=== PATIENT | male | born 1955 | race Caucasian/White ===

== ENCOUNTER 2022-06-09 16:06 | Emergency (ER) | payer MEDICARE, SELFPAY ==
[2022-06-09 16:18] VITALS: BP 117/77; PULSE 96; RESP 20; TEMP 36.7; O2SAT 96
[2022-06-09 16:45] VITALS: RESP 24
--- NOTE | 2022-06-09 16:57 | ED.GENADUL_ITS ---
Discharge Plan Disposition Patient Disposition: HOME Condition: Stable Discharge Details Clinical Impression: COPD exacerbation Primary Care Provider: Unknown,Unknown ED Provider: Paulino Nugent Home Meds and New Rx's Prescriptions: New prednisone 20 mg tablet 60 mg PO DAILY 4 Days Qty: 12 0RF ipratropium-albuterol 0.5 mg-3 mg(2.5 mg base)/3 mL solution for nebulization 3 ml inhalation Q6H PRNQty: 90 0RF Continued albuterol sulfate [Proventil HFA] 1 PUFF HFA aerosol inhaler 200 puff Inhalation QID PRN (Reason: Shortness Of Breath) Qty: 1 0RF simvastatin 20 MG tablet 20 mg PO DAILY budesonide-formoterol [Symbicort] 10.2 GM HFA aerosol inhaler 2 puff Inhalation BID Daliresp 500 MCG tablet 500 mcg PO DAILY naproxen 500 MG tablet 500 mg PO BID Qty: 10 0RF tramadol 50 MG tablet 50 mg PO Q6H PRNQty: 10 0RF losartan 25 mg tablet 25 mg PO DAILY Label Comments: TAKE 1 TABLET BY MOUTH ONCE DAILY FOR BLOOD PRESSURE Discharge Instructions Instructions: COPD (Chronic Obstructive Pulmonary Disease) (ED) Additional Instructions: follow up with your primary care provider within 1 week if you feel more ill, have severe worsening difficulty breathing or chest pain return to the emergency department Medical Decision Making 66 yo male who has a hx of copd and quit smoking 2 years ago, htn, hld, comes in with complaint of feeling short of breath. He takes ipratropium/abluterol nebulizer every morning and he ran out of it, his pcp called him in an inhaler instead of the nebulizer and he has been feeling short of breath most of the day so came here. He arrives stable speaking clearly. HE denies chest pain, fevers, cough. He has no leg swelling or calf tenderness. He does have diffuze wheezing in all lung [place] bilaterally. No jvd. Given his history and exam suspect copd exacerbation will treat with duoneb and prednisone and reassess. pt states he feels significantly better requesting d/c, only has apical wheezing bilaterally now otherwise clear lungs. Given rapid improvement with neb do not feel further testing or treatment indicated. given no fever or worsening cough do not feel abx indicated. Will place on short course of prednisone and advised to f/u with pcp, return precautions given Differential Diagnosis Differential Diagnosis: copd, reactive airway disease HPI General Mode of arrival: ambulatory . Date/Time Provider Initiated Documentation: 06/09/22 16:07 . Limitations to Documentation: no limitations . Information obtained by: patient . History of Present Illness 66 year old M presents to the emergency department with the chief complaint of shortness of breath, described as moderate, Patient started experiencing this hour(s) (7) and it has been constant. No relieving factors improve symptom(s), No exacerbating factors reported . Patient notes denies chest pain, cough and fever/chills. Patient did receive the following treatments prior to arrival, none Related Data Home Medications Medication Instructions Recorded Confirmed albuterol sulfate 90 mcg/actuation 200 puff inhalation QID PRN 12/02/12 10/23/17 aerosol inhaler (Proventil HFA) Shortness Of Breath #1 inh budesonide-formoterol HFA 80 2 puff inhalation BID 10/23/17 06/09/22 mcg-4.5 mcg/actuation aerosol inhaler (Symbicort) naproxen 500 mg tablet 500 mg PO BID #10 tabs 10/23/17 06/09/22 roflumilast 500 mcg tablet 500 mcg PO DAILY 10/23/17 06/09/22 (Daliresp) simvastatin 20 mg tablet 20 mg PO DAILY 10/23/17 06/09/22 tramadol 50 mg tablet 50 mg PO Q6H PRN #10 tabs 10/23/17 ipratropium 0.5 mg-albuterol 3 mg 3 ml inhalation Q6H PRN #90 mL 06/09/22 (2.5 mg base)/3 mL nebulization soln losartan 25 mg tablet 25 mg PO DAILY 06/09/22 06/09/22 prednisone 20 mg tablet 60 mg PO DAILY 4 days #12 tabs 06/09/22 Previous Rx's Medication Instructions Recorded albuterol sulfate 90 mcg/actuation 200 puff inhalation QID PRN 12/02/12 aerosol inhaler (Proventil HFA) Shortness Of Breath #1 inh naproxen 500 mg tablet 500 mg PO BID #10 tabs 10/23/17 tramadol 50 mg tablet 50 mg PO Q6H PRN #10 tabs 10/23/17 ipratropium 0.5 mg-albuterol 3 mg 3 ml inhalation Q6H PRN #90 mL 06/09/22 (2.5 mg base)/3 mL nebulization soln prednisone 20 mg tablet 60 mg PO DAILY 4 days #12 tabs 06/09/22 Allergies Allergy/AdvReac Type Severity Reaction Status Date / Time No Known Allergies Allergy Unverified 06/09/22 16:22 General Stated Complaint: SOB RANDY: 4 Review of Systems All systems reviewed & are unremarkable except as noted in HPI and below Constitutional Constitutional: Denies chills, Denies fever(s) and Denies weakness Cardiovascular Cardiovascular: Denies chest pain Respiratory Respiratory: Denies cough Gastrointestinal Gastrointestinal: Denies abdominal pain, Denies nausea and Denies vomiting Musculoskeletal Musculoskeletal: Denies joint swelling Neurologic Neurologic: Denies weakness PFSH All Active Problems (Updated 06/09/22 @ 17:40 by Paulino Nugent MD) COPD exacerbation (Acute) Social History Smoking/Tobacco Use Status: Current every day Smoking risk assessment performed?: Yes Drug use: Never Substance use type: does not use Do you feel safe in your relationship?: Yes Exam Const General: no acute distress Orientation: alert HENMT Head: normal to inspection Ears: external ears normal General nose exam: external nose normal Mouth: moist mucous membranes Eyes General: appearance normal, both eyes and all related structures Neck Neck: normal visual inspection Resp Effort & Inspection: audible wheezes Cardio Rate: regular rate Skin General skin exam: no rashes or lesions noted Neuro General: patient alert and patient oriented x3 Extrem General: normal to inspection Psych Mental Status: mental status grossly normal Course Vital Signs Vital signs: Vital Signs Temperature 36.7 C 06/09/22 16:18 Pulse 96 H 06/09/22 16:18 Respiratory Rate 20 06/09/22 16:18 Blood Pressure 117/77 06/09/22 16:18 Pulse Oximetry 96 06/09/22 16:18 Temperature 36.7 C 06/09/22 16:18 Temperature Source Temporal Artery Scan 06/09/22 16:18 Pulse 96 H 06/09/22 16:18 Respiratory Rate 24 06/09/22 16:45 Respiratory Effort 06/09/22 16:45 Respiratory Depth Shallow 06/09/22 16:45 Respiratory Pattern Normal 06/09/22 16:45 Blood Pressure 117/77 06/09/22 16:18 Blood Pressure Position Sitting 06/09/22 16:18 Pulse Oximetry 96 06/09/22 16:18 Oxygen Delivery Method Room Air 06/09/22 16:18 Oxygen Flow Rate 0 06/09/22 16:18 Pain Level 0 06/09/22 16:18
[2022-06-09] MEDS: predniSONE 20 MG TAB 60 MG PO (17:10)
[2022-06-09 17:11] VITALS: PULSE 107; RESP 20; O2SAT 95
[2022-06-09] MEDS: Albuterol/Ipratropium 3 ML UPD VIAL UPD (17:11)
[2022-06-09 17:34] VITALS: PULSE 109; RESP 20; RESP 8; O2SAT 96
[2022-06-09 17:40] VITALS: BP 108/78; PULSE 107; TEMP 36.9; O2SAT 95
[2022-06-09 17:53] VITALS: BP 108/78; PULSE 107; TEMP 36.9; O2SAT 95
== END 2022-06-09 18:02 | disposition home or self-care (01) ==
PROVIDERS: Emergency Provider Emergency Medicine
DX: J44.1 Chronic obstructive pulmonary disease with (acute) exacerbation (principal); I10 Essential (primary) hypertension; F17.200 Nicotine dependence, unspecified, uncomplicated; Z79.51 Long term (current) use of inhaled steroids; Z79.52 Long term (current) use of systemic steroids
CPT/HCPCS: 94640; 99284; J7512; J7620

== ENCOUNTER 2023-06-02 06:39 | Observation (INO) | payer MEDICARE, SELFPAY ==
[2023-06-02] VITALS (78 sets, daily range): BP systolic 102–159; BP diastolic 66–110; PULSE 0–88; RESP 0–25; TEMP 36.1–36.4; O2SAT 95–98
--- NOTE | 2023-06-02 | DI.US_ITS ---
Exam(s) US EXTREMITY VENOUS BI EXAM: US EXTREMITY VENOUS BI CLINICAL HISTORY: elevated d-dimer. TECHNIQUE: Bilateral lower extremity venous ultrasound performed using grayscale, color-flow, and sp ectral Doppler analysis. COMPARISON: No exams were available for comparison FINDINGS: The right common femoral, femoral and popliteal veins demonstrate normal compressibility, augmentatio n, and color Doppler. The posterior tibial veins are patent. The saphenofemoral junction is unremark able. There is no evidence of a Berman's cyst. The soft tissues are unremarkable. The left common femoral, femoral and popliteal veins demonstrate normal compressibility, augmentation , and color Doppler. The posterior tibial veins are patent. The saphenofemoral junction is unremarka ble. There is no evidence of a Berman's cyst. The soft tissues are unremarkable. IMPRESSION: 1. No evidence of a right lower extremity DVT. 2. No evidence of a left lower extremity DVT. DATA REPOSITORY:
--- NOTE | 2023-06-02 06:30 | RT.EKG_ITS ---
APPROVED REPORT Exam: Resting ECG Reason for Exam: chest pain Patient Location: E HR:79 bpm ECG Measurements Heart Rate 79 AXIS IA 181 P 69 QRSd 86 QRS 53 QT 359 T 61 QTc 412 Conclusion Sinus rhythm...normal P axis, V-rate 60- 99 Probable left atrial enlargement...P >50mS, <-0.10mV V1
--- NOTE | 2023-06-02 06:57 | ED.GENADUL_ITS ---
Discharge Plan Discharge Details Chief Complaint: Chest Pain Primary Care Provider: Unknown,Unknown ED Provider: Timoteo Feliciano Home Meds and New Rx's Prescriptions: No Action albuterol sulfate [Proventil HFA] 1 PUFF HFA aerosol inhaler 200 puff Inhalation QID PRN (Reason: Shortness Of Breath) Qty: 1 0RF simvastatin 20 MG tablet 20 mg PO DAILY budesonide-formoterol [Symbicort] 10.2 GM HFA aerosol inhaler 2 puff Inhalation BID roflumilast [Daliresp] 500 MCG tablet 500 mcg PO DAILY naproxen 500 MG tablet 500 mg PO BID Qty: 10 0RF tramadol 50 MG tablet 50 mg PO Q6H PRNQty: 10 0RF losartan 25 mg tablet 25 mg PO DAILY Patient Comments: TAKE 1 TABLET BY MOUTH ONCE DAILY FOR BLOOD PRESSURE ipratropium-albuterol 0.5 mg-3 mg(2.5 mg base)/3 mL solution for nebulization 3 ml inhalation Q6H PRNQty: 90 0RF HPI General Date/Time Provider Initiated Documentation: 06/02/23 06:57 . HPI Narrative: Patient presents emergency department complaining of chest pain especially when he breathes. States that he got short of breath last night took Tums with improvement and then the pain recurred. Denies any fever denies any chills reports cough but nonproductive. Patient states that he has history of COPD and took some of his inhalers. Denies orthopnea Related Data Home Medications Medication Instructions Recorded Confirmed albuterol sulfate 90 mcg/actuation 200 puff inhalation QID PRN 12/02/12 06/02/23 aerosol inhaler (Proventil HFA) Shortness Of Breath #1 inh budesonide-formoterol HFA 80 2 puff inhalation BID 10/23/17 06/02/23 mcg-4.5 mcg/actuation aerosol inhaler (Symbicort) naproxen 500 mg tablet 500 mg PO BID #10 tabs 10/23/17 06/02/23 roflumilast 500 mcg tablet 500 mcg PO DAILY 10/23/17 06/02/23 (Daliresp) simvastatin 20 mg tablet 20 mg PO DAILY 10/23/17 06/02/23 tramadol 50 mg tablet 50 mg PO Q6H PRN #10 tabs 10/23/17 06/02/23 ipratropium 0.5 mg-albuterol 3 mg 3 ml inhalation Q6H PRN #90 mL 06/09/22 06/02/23 (2.5 mg base)/3 mL nebulization soln losartan 25 mg tablet 25 mg PO DAILY 06/09/22 06/02/23 Previous Rx's Medication Instructions Recorded albuterol sulfate 90 mcg/actuation 200 puff inhalation QID PRN 12/02/12 aerosol inhaler (Proventil HFA) Shortness Of Breath #1 inh naproxen 500 mg tablet 500 mg PO BID #10 tabs 10/23/17 tramadol 50 mg tablet 50 mg PO Q6H PRN #10 tabs 10/23/17 ipratropium 0.5 mg-albuterol 3 mg 3 ml inhalation Q6H PRN #90 mL 06/09/22 (2.5 mg base)/3 mL nebulization soln Allergies Allergy/AdvReac Type Severity Reaction Status Date / Time No Known Allergies Allergy Unverified 06/02/23 06:57 General Stated Complaint: Chest Pain RANDY: 2 Review of Systems Narrative: Review of Systems: Constitutional: No fevers, chills, sweats Eye: No recent visual problems ENT: No ear pain, nasal congestion, sore throat Cardiovascular: No Chest pain, palpitations, syncope Gastrointestinal: No nausea, vomiting, diarrhea Genitourinary: No hematuria Korey/Lymph: Negative for bruising tendency, swollen lymph glands Endocrine: Negative for excessive thirst, excessive hunger Musculoskeletal: No back pain, neck pain, joint pain, muscle pain, decreased range of motion Integumentary: No rash, pruritus, abrasions Neurologic: Alert & oriented X 4 Psychiatric: No anxiety, depression [facility] Social History Smoking/Tobacco Use Status: Former Tobacco Use Smoking risk assessment performed?: Yes Drug use: Never Substance use type: does not use Housing: apartment Do you feel safe at home: Yes Do you feel safe in your relationship?: Yes Exam Narrative Exam Narrative: Exam; vitals signs as reported above normal Constitutional; In no acute distress, afebrile General: cooperative, healthy appearing, comfortable and no acute distress HEENT: Head: normal to inspection, no palpable skull fracture and normocephalic atraumatic Eyes: : appearance normal, both eyes and all related structures EOM intact bilaterally Pupils: PERRL : conjunctiva normal Direct ophthalmoscopy: normal light reflex, normal conjunctiva, normal visual acuity Ears: Normal TM, normal external canal Neck no JVD, supple non tender Neck: normal visual inspection, full ROM and no lymphadenopathy Chest: normal inspection of the chest Respiratory : normal respiratory effort and able to speak in complete sentences mild wheezes and rales in the bases Cardio Rate: regular rate, rhythm: regular rhythm normal heart sounds S1 and S2 no murmurs, gallops, or rubs GI : normal to inspection, normal bowel sounds, soft, non tender, non distended, no organomegaly Back/Spine/ no CVA tenderness Thoracic/Lumbar Spine: no tenderness or deformities Skin no rashes or lesions Neuro: patient alert and no meningeal signs, Cranial Nerves: CN's II-XI intact bilaterally, Cognition: normal cognition, Speech: speech normal, Gait: normal gait, Depp tendon reflexes normal 2+ muscle strength 5/5 bilaterally Extremities, no edema, full range of motion, normal strength : normal Rectal: defered Course Vital Signs Vital signs: Vital Signs Temperature 36.4 C L 06/02/23 06:46 Pulse 86 06/02/23 06:46 Respiratory Rate 18 06/02/23 06:46 Blood Pressure 143/75 H 06/02/23 06:46 Pulse Oximetry 98 06/02/23 06:46 Temperature 36.4 C L 06/02/23 06:46 Temperature Source Oral 06/02/23 06:46 Pulse 86 06/02/23 06:46 Respiratory Rate 18 06/02/23 06:53 Respiratory Effort Normal, Non-Labored 06/02/23 06:53 Respiratory Depth Normal 06/02/23 06:53 Respiratory Pattern Normal 06/02/23 06:53 Blood Pressure 143/75 H 06/02/23 06:46 Blood Pressure Position Supine 06/02/23 06:46 Pulse Oximetry 98 06/02/23 06:46 Oxygen Delivery Method Room Air 06/02/23 06:46 Oxygen Flow Rate 0 06/02/23 06:46 Pain Level 7 06/02/23 06:53 Sign Out Sign Out Data: Sign Out Comment: Patient with history of COPD who comes with chest pain and mild shortness of breath. Labs chest x-ray have been ordered and pending. EKG is within normal limits Last updated by Timoteo Feliciano MD at 06/02/23 07:51 PAWSS Have you Been Recently Intoxicated or Drunk Within the Last 30 days?: No Have you Ever Experienced Previous Episodes of Alcohol Withdrawal?: No Have you ever Experienced Withdrawal Seizures?: No Have you ever Experienced Delirium Tremens(DT)s?: No Have you ever undergone Alcohol Rehabilitation Treatment (i.e, inpt ot outpatient treatment programs)?: No Have you ever Experienced Blackouts?: No Have you ever Combined Alcohol with other Downers within the last 90 days?: No Have you ever Combined Alcohol with any other Substance of Abuse during the last 90 days?: No Positive Blood Alcohol level on Presentation? [PCS.BAL]: No Evidence of Increased Autonomic Activity (i.e. HR>120, tremor, sweating, agitation, nausea)?: No Result: 0
--- NOTE | 2023-06-02 07:00 | DI.RAD_ITS ---
Exam(s) XR PORTABLE CHEST AP EXAM: XR PORTABLE CHEST AP CLINICAL HISTORY: Shortness of breath TECHNIQUE: 2D digital imaging was performed of the chest. One image was obtained. An AP view was ob tained. COMPARISON: CR CHEST 2 VIEWS PA,LAT from 12/02/2008 FINDINGS: MEDIASTINUM: Normal. HEART: Normal. PULMONARY VASCULATURE: Normal. LUNGS: Clear. PLEURAL SPACE: No pleural effusion or pneumothorax. BONE:Within normal limits for the patient's age. OTHER FINDINGS:Normal. IMPRESSION: No acute pulmonary findings. DATA REPOSITORY: RADIATION DOSE DELIVERED:
[2023-06-02 07:24] LABS: Abs Immature Grans 0.07 10^3/uL (0.0-0.06); Absolute Basophil Count 0.07 10^3/uL (0.0-0.2); Absolute Eosinophil Count 0.18 10^3/uL (0.0-0.7); Absolute Lymphocyte Count 0.82 10^3/uL (1.2-3.4); Absolute Monocyte Count 0.77 10^3/uL (0.1-0.8); Absolute Neutrophil Count 8.46 10^3/uL (1.2-6.7); Basophils % 0.7; Eosinophils % 1.7; HCT 44.2 % (40.0-50.0); HGB 14.1 g/dL (13.5-17.5); Immature Grans % 0.7; Lymphocytes % 7.9; MCH 26.1 pg (27.0-33.0); MCHC 31.9 % (32.0-36.0); MCV 82 fL (80-95); Monocytes % 7.4; Neutrophils % 81.6; Platelet Count 302 10^3/uL (130-400); RBC 5.41 10^6/uL (4.36-5.78); RDW 14.4 % (11.8-14.1); RDW-SD 42.1 fL; WBC 10.37 10^3/uL (4.4-10.8)
[2023-06-02 07:50] LABS: ALT 23 U/L (16-63); AST 16 U/L (15-37); Albumin 3.5 g/dL (3.4-5.0); Alkaline Phosphatase 126 U/L (46-116); BUN 21 mg/dL (7-18); Bilirubin, Total 0.3 mg/dL (0.2-1.0); CREATININE 1.5 mg/dL (0.70-1.30); Calcium 10.5 mg/dL (8.5-10.1); Chloride 105 mmol/L (98-107); Estimated GFR 50.71 (mL/min/1.73m2); Glucose 117 mg/dL (74-106); NT-proBNP 108 pg/mL (<300); Potassium 4.1 mmol/L (3.5-5.1); Sodium 141 mmol/L (136-145); Total Protein 7.2 g/dL (6.4-8.2); Troponin I < 50 ng/L (<or=60)
[2023-06-02 07:58] LABS: D-Dimer 1351 ng/mlFEU (<500)
--- NOTE | 2023-06-02 08:26 | DI.VRAD_ITS ---
PROCEDURE INFORMATION: Exam: XR Chest Exam date and time: 06/02/2023 7:29 AM Age: 67 years old Clinical indication: Other: Chest pain TECHNIQUE: Imaging protocol: Radiologic exam of the chest. Views: 1 view. COMPARISON: No relevant prior studies available. FINDINGS: Lungs: No focal consolidation seen. Pleural spaces: No large pleural effusion seen. Heart/Mediastinum: No cardiomegaly. Bones/joints: Grossly unremarkable. IMPRESSION: No acute findings to explain reported symptoms. Dictated and Authenticated by: Galina Patel MD. Ordering:JULIAN Mahmood MD
--- NOTE | 2023-06-02 08:30 | DI.CT_ITS ---
Exam(s) CT CHEST PE CTA EXAM: CT CHEST PE CTA CLINICAL HISTORY: cough. TECHNIQUE: Imaging Protocol: Axial CT angiography was performed with multi-slice acquisition and mu lti-planar and/or 3D reconstructions. CONTRAST MATERIAL: Intravenous: Omnipaque 350 contrast volume:100 mL COMPARISON: CT RENAL COLIC WO CONTRAST from 10/05/2010 CR,XR XR PORTABLE CHEST AP from 06/02/2023 FINDINGS: The examination is limited due to patient motion artifact. Tracheobronchial tree: Patent where visualized. Pulmonary parenchyma: Emphysematous changes are seen in the lungs. There are opacities seen in the d ependent portion of the lung bases predominantly in the lower lobes. Asymmetric breast tissue seen i n the lung apices. This may represent scarring. Pulmonary Arteries: No evidence of filling defect to suggest pulmonary emboli. Mediastinum and Marcia: No dominant adenopathy or fluid collection. The esophagus is unremarkable. Visualized thyroid gland: Unremarkable. Pleura: No effusion or pneumothorax. Heart: The heart is not dilated. No coronary artery calcifications are seen. No pericardial effusion. Aorta: Thoracic aorta non-dilated. No evidence of dissection. Atherosclerosis. Upper abdomen: Calcified granuloma are seen in the spleen. Soft tissues: Unremarkable. Bones: Within normal limits for the patient's age. IMPRESSION: 1. No evidence of pulmonary embolism, thoracic aortic dissection or aneurysm. 2. Moderate emphysema. 3. Bilateral basilar infiltrates which may represent atelectasis. RADIATION DOSE DELIVERED: 386.3mGy.cm Total DLP DATA REPOSITORY: All CT scans at this facility are submitted to the National Radiology Data Registry (NRDR) Dose Index Registry (DIR) with the [employer] (ACR). RADIATION OPTIMIZATION: All CT scans at this facility use at least one of these dose optimization te chniques: automated exposure control; mA and/or kV adjustment per patient size (includes targeted exa ms where dose is matched to clinical indication); or iterative reconstruction.
[2023-06-02] MEDS: Omnipaque 350 MG/ML 100 ML BTL IJ (08:53)
[2023-06-02] MEDS: Normal Saline - Diluent 50 ML VIAL IJ (08:54)
--- NOTE | 2023-06-02 09:53 | DI.VRAD_ITS ---
PROCEDURE INFORMATION: Exam: CTA Chest With Contrast Exam date and time: 06/02/2023 8:58 AM Age: 67 years old Clinical indication: Cough TECHNIQUE: Imaging protocol: Computed tomographic angiography of the chest with contrast. Exam focused on the arteries. 3D rendering (Not supervised by radiologist): MIP and/or 3D reconstructed images were created by the technologist. COMPARISON: CR XR PORTABLE CHEST AP 06/02/2023 7:29 AM FINDINGS: Pulmonary arteries: No main, lobar or segmental pulmonary arterial embolism. Aorta: Unremarkable. No aortic aneurysm. Lungs: There is mild bilateral dependent atelectasis. There is moderate centrilobular and paraseptal emphysema. There are scattered subpleural reticular opacities. Pleural spaces: Unremarkable. No pneumothorax. No pleural effusion. Heart: Unremarkable. No cardiomegaly. No pericardial effusion. Lymph nodes: Unremarkable. No enlarged lymph nodes. Bones/joints: Unremarkable. No acute fracture. Soft tissues: Unremarkable. IMPRESSION: 1. Mild dependent atelectasis. 2. No pulmonary arterial embolism. 3. Moderate emphysema with fibrosis. Dictated and Authenticated by: Adam Wahl MD. Ordering:TABBY Mcclendon MD
[2023-06-02] MEDS: Famotidine 20 MG/2 ML VIAL IVP (10:20)
[2023-06-02 10:58] LABS: Troponin I < 50 ng/L (<or=60)
--- NOTE | 2023-06-02 11:23 | W.EDPROG ---
Date of service: 06/02/23 Time of Service: 11:23 Medical Decision Making Care was signed out by Dr. Feliciano, please see his documentation regarding initial ED presentation and course. Plan at signout was to follow-up on labs and chest x-ray. Labs reviewed and D-dimer is elevated. CT of the chest was obtained. CT of the chest was reviewed and interpreted by radiology:1. No evidence of pulmonary embolism, thoracic aortic dissection or aneurysm.? 2. Moderate emphysema. 3. Bilateral basilar infiltrates which may represent atelectasis. Pepcid IV was given and patient reassessed and continued to have discomfort. EKG was initially reviewed by Dr. Feliciano. I reviewed this and no STEMI. Please see report. Initial troponin negative. Delta troponin negative. Patient was reassessed and still having retrosternal discomfort. Patient given nitroglycerin sublingual. I reviewed additional past medical history and patient has a history of hypertension, hyperlipidemia, former smoker and sister who had CO in her 50s. Plan to admit as an observation to rule out ACS. Patient agreeable with plan. 1235 --patient was given nitroglycerin sublingual and had significant improvement after second. Pain resolved. -- Repeat EKG reviewed and interpreted by me: Please report, nondiagnostic with no significant changes. I spoke with Dr. Abdullahi, on-call hospitalist, discussed ED presentation course, she will admit the patient. Lab Data Lab results reviewed: Yes I reviewed the patient's lab results. Labs: Laboratory Tests Range/Units 06/02/23 06/02/23 06/02/23 06:50 06:50 06:50 WBC (4.4-10.8) 10^3/uL 10.37 RBC (4.36-5.78) 10^6/uL 5.41 Hgb (13.5-17.5) g/dL 14.1 Hct (40.0-50.0) % 44.2 MCV (80-95) fL 82 MCH (27.0-33.0) pg 26.1 L MCHC (32.0-36.0) % 31.9 L RDW (11.8-14.1) % 14.4 H Plt Count (130-400) 10^3/uL 302 MPV (8.0-11.0) fL 11.0 Immature Gran % 0.7 Neutrophils % 81.6 Lymphocytes % 7.9 Monocytes % 7.4 Eosinophils % 1.7 Basophils % 0.7 Nucleated RBC % (0.0-0.3) % 0.0 Absolute Neutrophils (1.2-6.7) 10^3/uL 8.46 H Absolute Lymphocytes (1.2-3.4) 10^3/uL 0.82 L Absolute Monocytes (0.1-0.8) 10^3/uL 0.77 Absolute Eosinophils (0.0-0.7) 10^3/uL 0.18 Absolute Basophils (0.0-0.2) 10^3/uL 0.07 D-Dimer (<500) ng/mlFEU 1351 H Sodium (136-145) mmol/L 141 Potassium (3.5-5.1) mmol/L 4.1 Chloride (98-107) mmol/L 105 Carbon Dioxide (21.0-32.0) mmol/L 28.0 Anion Gap (3-11) mmol/L 8.0 BUN (7-18) mg/dL 21 H Creatinine (0.70-1.30) mg/dL 1.5 H Est GFR (CKD-EPI 2020) (mL/min/1.73m2) 50.71 Glucose (74-106) mg/dL 117 H Calcium (8.5-10.1) mg/dL 10.5 H Magnesium (1.8-2.4) mg/dL 2.0 Total Bilirubin (0.2-1.0) mg/dL 0.3 AST (15-37) U/L 16 ALT (16-63) U/L 23 Alkaline Phosphatase (46-116) U/L 126 H Troponin I (<or=60) ng/L < 50 NT-Pro-B Natriuret Pep (<300) pg/mL 108 Total Protein (6.4-8.2) g/dL 7.2 Albumin (3.4-5.0) g/dL 3.5 Range/Units 06/02/23 10:34 WBC (4.4-10.8) 10^3/uL RBC (4.36-5.78) 10^6/uL Hgb (13.5-17.5) g/dL Hct (40.0-50.0) % MCV (80-95) fL MCH (27.0-33.0) pg MCHC (32.0-36.0) % RDW (11.8-14.1) % Plt Count (130-400) 10^3/uL MPV (8.0-11.0) fL Immature Gran % Neutrophils % Lymphocytes % Monocytes % Eosinophils % Basophils % Nucleated RBC % (0.0-0.3) % Absolute Neutrophils (1.2-6.7) 10^3/uL Absolute Lymphocytes (1.2-3.4) 10^3/uL Absolute Monocytes (0.1-0.8) 10^3/uL Absolute Eosinophils (0.0-0.7) 10^3/uL Absolute Basophils (0.0-0.2) 10^3/uL D-Dimer (<500) ng/mlFEU Sodium (136-145) mmol/L Potassium (3.5-5.1) mmol/L Chloride (98-107) mmol/L Carbon Dioxide (21.0-32.0) mmol/L Anion Gap (3-11) mmol/L BUN (7-18) mg/dL Creatinine (0.70-1.30) mg/dL Est GFR (CKD-EPI 2020) (mL/min/1.73m2) Glucose (74-106) mg/dL Calcium (8.5-10.1) mg/dL Magnesium (1.8-2.4) mg/dL Total Bilirubin (0.2-1.0) mg/dL AST (15-37) U/L ALT (16-63) U/L Alkaline Phosphatase (46-116) U/L Troponin I (<or=60) ng/L < 50 NT-Pro-B Natriuret Pep (<300) pg/mL Total Protein (6.4-8.2) g/dL Albumin (3.4-5.0) g/dL Sign Out Sign Out Data: Sign Out Comment: Patient with history of COPD who comes with chest pain and mild shortness of breath. Labs chest x-ray have been ordered and pending. EKG is within normal limits Last updated by Timoteo Feliciano MD at 06/02/23 07:51 Discharge Plan Disposition Patient Disposition: Admit to [facility] Condition: Serious Discharge Details Clinical Impression: Acute chest pain, Creatinine elevation Admit Date/Time: 06/02/23 13:04 Admit Provider: Jordyn Abdullahi Attending Provider: Jordyn Abdullahi Primary Care Provider: Unknown,Unknown ED Provider: Hakan Clemens
--- NOTE | 2023-06-02 11:47 | NUR.NOTE ---
Nursing Note:Trial of nitroglycerin per Dr. Clemens- pt reported relief of symptoms after 2nd dose, only felt very mild discomfort afterwards
--- NOTE | 2023-06-02 12:00 | RT.EKG_ITS ---
APPROVED REPORT Exam: Resting ECG Reason for Exam: chest pain Patient Location: E HR:74 bpm ECG Measurements Heart Rate 74 AXIS [place] 174 P 126 QRSd 87 QRS 162 QT 401 T 151 QTc 445 Conclusion Right and left arm electrode reversal, interpretation assumes no reversal Sinus rhythm...normal P axis, V-rate 60- 99 Right ventricular hypertrophy...prominent R or R' w/ RAD or MONICA Abnrm T, consider ischemia, anterolateral lds...T <-0.20mV, I aVL V2-V6 erroneous lead placement
--- NOTE | 2023-06-02 12:45 | RT.EKG_ITS ---
APPROVED REPORT Exam: Resting ECG Reason for Exam: repeat, ? lead reversal Patient Location: E HR:66 bpm ECG Measurements Heart Rate 66 AXIS [place] 180 P 61 QRSd 85 QRS 28 QT 405 T 38 QTc 424 Conclusion Sinus rhythm...normal P axis, V-rate 60- 99 Probable left atrial enlargement...P >50mS, <-0.10mV V1 no stemi
--- NOTE | 2023-06-02 14:28 | DI.VRAD_ITS ---
PROCEDURE INFORMATION: Exam: US Duplex Lower Extremity Veins, Bilateral Exam date and time: 06/02/2023 1:24 PM Age: 67 years old Clinical indication: Other: Elevated d dimer TECHNIQUE: Imaging protocol: Real-time duplex ultrasound of the bilateral extremities with 2-D sanabria scale, color Doppler flow and spectral waveform analysis including responses to compression and other maneuvers (when performed) with image documentation. Complete exam focused on the lower extremity veins. COMPARISON: No relevant prior studies available. FINDINGS: Right deep veins: Unremarkable. The common femoral, femoral, proximal profunda femoral and popliteal veins are patent without thrombus. Normal Doppler waveforms. Normal compressibility and/or augmentation response. Left deep veins: Unremarkable. The common femoral, femoral, proximal profunda femoral and popliteal veins are patent without thrombus. Normal Doppler waveforms. Normal compressibility and/or augmentation response. Superficial veins: Bilateral saphenofemoral junctions are patent without thrombus. Soft tissues: Unremarkable. IMPRESSION: No evidence of deep vein thrombosis. Dictated and Authenticated by: Adam Wahl MD. Ordering:ERIK Cobb MD
[2023-06-02 14:54] LABS: Troponin I < 50 ng/L (<or=60)
[2023-06-02] MEDS: Heparin 5,000 UNITS/ML VIAL 5000 UNITS SC ×2 (15:38→21:48)
[2023-06-02] MEDS: Normal Saline Flush 10 ML SYR IVP (15:40)
[2023-06-02 17:28] LABS: Troponin I < 50 ng/L (<or=60)
--- NOTE | 2023-06-02 19:04 | HPE_ITS ---
Date of service: 06/02/23 Time of Service: 16:00 Assessment and Plan Assessment and plan (1) Acute chest pain: Status: Acute Assessment and plan: CTA neg for PE/aneurysm, no acute pulmonary findings. BLE US neg for DVT EKG NSR Telemetry Nitroglycerin sl prn Aspirin 325 mg today and 81 mg daily there after Protonix (2) COPD (chronic obstructive pulmonary disease): Status: Chronic Assessment and plan: Contnue home meds Budesonide/formoterol fumarate, nebs prn Continue roflumilast No cough, no fever, no leukocytosis SPO2 > 90% RA Covid negative (3) Hyperlipidemia: Status: Acute Assessment and plan: Continue simvastatin (4) Hypertension: Status: Chronic Assessment and plan: Contnue losartan Monitor (5) Bilateral lower extremity pain: Status: Chronic Assessment and plan: Chronic pain to BLE - takes tramadol prn at home with good relief, continue (6) DVT prophylaxis: Status: Acute Assessment and plan: Heparin 5000 units subc daily discussed with Dr Abdullahi History of Present Illness History of Present Illness Chief Complaint: Chest pain Narrative: This is a 67 year old male patient with past medical history of COPD, hypertension, hyperlipidemia, and a former smoker who presented to the [facility] ED for evaluation of sudden onset of chest pain with inspiration. Labs in the ED unremarkable, although ddimer was elevated. CTA of the chest negative of PE, no aneurysm. He does have moderated emphysema and bilateral basilar infiltrates which may represent atelectasis. He was given pepcid IV in the ED and continued to have pain. He was given nitroglycerin sublingual, times two, and his pain resolved. His troponin is negative x 3, EKG NSR, Patient reproted he has a sister who had WI in her 50's. Patient is placed on observation status on the medical floor on telemetry for continued assessment of ACS. Review of Systems All systems reviewed & are unremarkable except as noted in HPI and below PFSH All Active Problems (Updated 06/02/23 @ 19:32 by Rosemary Mena NP) Bilateral lower extremity pain (Chronic) Hypertension (Chronic) Hyperlipidemia (Acute) COPD (chronic obstructive pulmonary disease) (Chronic) DVT prophylaxis (Acute) Acute chest pain (Acute) Creatinine elevation (Acute) Social History Smoking/Tobacco Use Status: Former Tobacco Use Smoking risk assessment performed?: Yes Drug use: Never Substance use type: does not use Housing: apartment Do you feel safe at home: Yes Do you feel safe in your relationship?: Yes Meds Allergies and Home Medications Allergies Allergy/AdvReac Type Severity Reaction Status Date / Time No Known Allergies Allergy Unverified 06/02/23 06:57 Home Medications Medication Instructions Recorded Confirmed Type albuterol sulfate 90 mcg/actuation 200 puff inhalation QID PRN 12/02/12 06/02/23 Rx aerosol inhaler (Proventil HFA) Shortness Of Breath #1 inh budesonide-formoterol HFA 80 2 puff inhalation BID 10/23/17 06/02/23 History mcg-4.5 mcg/actuation aerosol inhaler (Symbicort) naproxen 500 mg tablet 500 mg PO BID #10 tabs 10/23/17 06/02/23 Rx roflumilast 500 mcg tablet 500 mcg PO DAILY 10/23/17 06/02/23 History (Daliresp) simvastatin 20 mg tablet 20 mg PO DAILY 10/23/17 06/02/23 History tramadol 50 mg tablet 50 mg PO Q6H PRN #10 tabs 10/23/17 06/02/23 Rx ipratropium 0.5 mg-albuterol 3 mg 3 ml inhalation Q6H PRN #90 mL 06/09/22 06/02/23 Rx (2.5 mg base)/3 mL nebulization soln losartan 25 mg tablet 25 mg PO DAILY 06/09/22 06/02/23 History Exam Narrative Exam Narrative: Exam; vitals signs as reported above normal Constitutional; In no acute distress, afebrile General: cooperative, healthy appearing, comfortable and no acute distress HEENT: Head: normal to inspection, no palpable skull fracture and normocephalic atraumatic Eyes: : appearance normal, both eyes and all related structures EOM intact bilaterally Pupils: PERRL : conjunctiva normal Direct ophthalmoscopy: normal light reflex, normal conjunctiva, normal visual acuity Ears: Normal TM, normal external canal Neck no JVD, supple non tender Neck: normal visual inspection, full ROM and no lymphadenopathy Chest: normal inspection of the chest Respiratory : normal respiratory effort and able to speak in complete sentences, distant, bilateral clear breath sounds Cardio Rate: regular rate, rhythm: regular rhythm normal heart sounds S1 and S2 no murmurs, gallops, or rubs GI : normal to inspection, normal bowel sounds, soft, non tender, non distended, no organomegaly Back/Spine/ no CVA tenderness Thoracic/Lumbar Spine: no tenderness or deformities Skin no rashes or lesions Neuro: patient alert and no meningeal signs, Cranial Nerves: CN's II-XI intact bilaterally, Cognition: normal cognition, Speech: speech normal, Gait: normal gait, Depp tendon reflexes normal 2+ muscle strength 5/5 bilaterally Extremities, no edema, full range of motion, normal strength : normal Rectal: deferred Results Labs 06/02/23 06:50 06/02/23 06:50 Labs: Laboratory Results - last 24 hr 06/02/23 06/02/23 06/02/23 06:50 06:50 06:50 WBC 10.37 RBC 5.41 Hgb 14.1 Hct 44.2 MCV 82 MCH 26.1 L MCHC 31.9 L RDW 14.4 H Plt Count 302 MPV 11.0 Immature Gran % 0.7 Neutrophils % 81.6 Lymphocytes % 7.9 Monocytes % 7.4 Eosinophils % 1.7 Basophils % 0.7 Nucleated RBC % 0.0 Absolute Neutrophils 8.46 H Absolute Lymphocytes 0.82 L Absolute Monocytes 0.77 Absolute Eosinophils 0.18 Absolute Basophils 0.07 D-Dimer 1351 H Sodium 141 Potassium 4.1 Chloride 105 Carbon Dioxide 28.0 Anion Gap 8.0 BUN 21 H Creatinine 1.5 H Est GFR (CKD-EPI 2020) 50.71 Glucose 117 H Calcium 10.5 H Magnesium 2.0 Total Bilirubin 0.3 AST 16 ALT 23 Alkaline Phosphatase 126 H Troponin I < 50 NT-Pro-B Natriuret Pep 108 Total Protein 7.2 Albumin 3.5 06/02/23 06/02/23 06/02/23 10:34 14:26 17:03 WBC RBC Hgb Hct MCV MCH MCHC RDW Plt Count MPV Immature Gran % Neutrophils % Lymphocytes % Monocytes % Eosinophils % Basophils % Nucleated RBC % Absolute Neutrophils Absolute Lymphocytes Absolute Monocytes Absolute Eosinophils Absolute Basophils D-Dimer Sodium Potassium Chloride Carbon Dioxide Anion Gap BUN Creatinine Est GFR (CKD-EPI 2020) Glucose Calcium Magnesium Total Bilirubin AST ALT Alkaline Phosphatase Troponin I < 50 < 50 < 50 NT-Pro-B Natriuret Pep Total Protein Albumin Last Vital Signs Temp 36.2 C L 06/02/23 15:06 Pulse 80 06/02/23 15:06 Resp 16 06/02/23 15:06 BP 155/89 H 06/02/23 15:06 Pulse Ox 98 06/02/23 15:06 PAWSS Have you Been Recently Intoxicated or Drunk Within the Last 30 days?: No Have you Ever Experienced Previous Episodes of Alcohol Withdrawal?: No Have you ever Experienced Withdrawal Seizures?: No Have you ever Experienced Delirium Tremens(DT)s?: No Have you ever undergone Alcohol Rehabilitation Treatment (i.e, inpt ot outpatient treatment programs)?: No Have you ever Experienced Blackouts?: No Have you ever Combined Alcohol with other Downers within the last 90 days?: No Have you ever Combined Alcohol with any other Substance of Abuse during the last 90 days?: No Positive Blood Alcohol level on Presentation? [PCS.BAL]: No Evidence of Increased Autonomic Activity (i.e. HR>120, tremor, sweating, agitation, nausea)?: No Result: 0 Time Spent Time spent with Patient: 55-74 minutes Time was spent: preparing to see the patient(eg.review tests), obtaining and/or reviewing separately otained hiistory, ordering medications,tests, procedures, referring, communicating with other health healthcare consultant, indepentently interpreting results, counseling the patient and care coordination
[2023-06-02] MEDS: Naproxen 500 MG TAB PO (19:05)
[2023-06-02] MEDS: Budesonide/Formoterol 80/4.5 6.9 GM 60 PUFF INH IH (19:35)
[2023-06-02] MEDS: Aspirin 325 MG TAB PO (19:35)
[2023-06-02] MEDS: Zolpidem 5 MG TAB PO (21:49)
[2023-06-03 03:41] VITALS: BP 116/76; PULSE 66; RESP 18; TEMP 36.2; O2SAT 96
[2023-06-03] MEDS: Heparin 5,000 UNITS/ML VIAL 5000 UNITS SC (05:34)
[2023-06-03 06:09] LABS: Abs Immature Grans 0.05 10^3/uL (0.0-0.06); Absolute Basophil Count 0.05 10^3/uL (0.0-0.2); Absolute Lymphocyte Count 1.04 10^3/uL (1.2-3.4); Absolute Monocyte Count 0.51 10^3/uL (0.1-0.8); Absolute Neutrophil Count 5.88 10^3/uL (1.2-6.7); Basophils % 0.6; Eosinophils % 2.6; HCT 40.1 % (40.0-50.0); Immature Grans % 0.6; Lymphocytes % 13.5; MCH 26.1 pg (27.0-33.0); MCHC 32.4 % (32.0-36.0); MCV 81 fL (80-95); MPV 10.5 fL (8.0-11.0); Monocytes % 6.6; Neutrophils % 76.1; Platelet Count 230 10^3/uL (130-400); RBC 4.98 10^6/uL (4.36-5.78); RDW 14.5 % (11.8-14.1); RDW-SD 42.3 fL; WBC 7.73 10^3/uL (4.4-10.8)
[2023-06-03 06:35] LABS: Anion Gap 10.4 mmol/L (3-11); BUN 18 mg/dL (7-18); CO2 22.6 mmol/L (21.0-32.0); CREATININE 1.3 mg/dL (0.70-1.30); Calcium 9.1 mg/dL (8.5-10.1); Calculated LDL 59 mg/dL (<100); Chloride 105 mmol/L (98-107); Cholesterol 133 mg/dL (<200); Estimated GFR 60.21 (mL/min/1.73m2); Glucose 103 mg/dL (74-106); HDL Cholesterol 45 mg/dL (40-60); Magnesium 1.8 mg/dL (1.8-2.4); Potassium 4.3 mmol/L (3.5-5.1); Sodium 138 mmol/L (136-145); TSH (W/Ref FT4) 1.08 uIU/mL (0.36-3.74); Triglyceride 146 mg/dL (<150)
[2023-06-03 07:02] VITALS: PULSE 81
[2023-06-03 07:10] VITALS: BP 129/81; PULSE 84; RESP 12; TEMP 36.2; O2SAT 95
[2023-06-03 07:43] LABS: Lab Add On Test COMPLETED
[2023-06-03] MEDS: Naproxen 500 MG TAB PO (07:49)
[2023-06-03] MEDS: Aspirin 81 MG CHEW PO (07:49)
[2023-06-03] MEDS: Pantoprazole 40 MG TABCR PO (07:50)
[2023-06-03] MEDS: Simvastatin 20 MG TAB PO (07:50)
[2023-06-03] MEDS: Losartan 25 MG TAB PO (07:50)
[2023-06-03] MEDS: Normal Saline Flush 10 ML SYR IVP (07:51)
[2023-06-03] MEDS: Budesonide/Formoterol 80/4.5 6.9 GM 60 PUFF INH IH (07:54)
[2023-06-03 07:59] LABS: Troponin I < 50 ng/L (<or=60)
--- NOTE | 2023-06-03 08:15 | RT.EKG_ITS ---
APPROVED REPORT Exam: Resting ECG Reason for Exam: F/u chest pain Patient Location: I HR:89 bpm ECG Measurements Heart Rate 89 AXIS [place] 171 P 54 QRSd 96 QRS 28 QT 388 T 41 QTc 473 Conclusion Sinus rhythm...normal P axis, V-rate 50- 99 Probable left atrial enlargement...P >50mS, <-0.10mV V1 Otherwise normal ECG
[2023-06-03] MEDS: Roflumilast 500 MCG TAB PO (11:44)
[2023-06-03 12:20] VITALS: BP 135/80; PULSE 88; RESP 16; TEMP 35.8; O2SAT 97
--- NOTE | 2023-06-03 14:46 | W.PM.DS.N ---
Date of service: 06/03/23 Time of Service: 14:46 DS: Diagnosis Discharge Diagnosis (1) Acute chest pain: Status: Acute (2) COPD (chronic obstructive pulmonary disease): Status: Chronic (3) Hyperlipidemia: Status: Acute (4) Hypertension: Status: Chronic (5) Bilateral lower extremity pain: Status: Chronic (6) DVT prophylaxis: Status: Acute Discharge Plan Disposition Patient Disposition: Home Condition: Good Discharge Details Reason For Visit: Chest Pain Admit Date/Time: 06/02/23 13:04 Admit Provider: Jordyn Abdullahi Attending Provider: Jordyn Abdullahi Primary Care Provider: VERNON GARDNER [facility] Course Hospital Course: This is a 67 year old male patient with past medical history of COPD, hypertension, hyperlipidemia, and a former smoker who presented to the [facility] ED on 06/02/23 for evaluation of sudden onset of chest pain with inspiration. Labs in the ED unremarkable, although ddimer was elevated.? CTA of the chest negative of PE, no aneurysm.? He does have moderated emphysema and bilateral basilar infiltrates which may represent atelectasis. He was given pepcid IV in the ED and continued to have pain.? He was given nitroglycerin sublingual, times two, and his pain resolved.? His troponin is negative x 3, EKG NSR,? Patient reported he has a sister who had IA in her 50's. Patient was placed on observation status on the medical floor on telemetry overnight for continued assessment of ACS. Patient had no more chest pain. No complaints, no nausea, vomiting, no shortness of breath. He was discharged to home and told to start aspirin daily, 81 mg. He reported to me he has been taking aspirin 81 mg daily for quite some time. He was given a prescription for nitroglycerin and instructed to call 911 if he develops chest pain that is not relieved by nitroglycerin. He has an outpatient echocardiogram and stress test pending with results to his PCP Vernon Gardner MD. He is discharged to home stable. Home Meds and New Rx's Prescriptions: New aspirin [Children's Aspirin] 81 mg Tablet,Chewable 81 mg PO DAILY Qty: 0 0RF pantoprazole 40 mg Tablet,Delayed Release (Dr/Ec) 40 mg PO DAILY@0730 Qty: 30 0RF nitroglycerin 0.4 mg tablet, sublingual 0.4 mg sublingual Q5-15M PRNQty: 30 0RF Rx Instructions: do not exceed 3 doses per episode Continued albuterol sulfate [Proventil HFA] 1 PUFF HFA aerosol inhaler 200 puff Inhalation QID PRN (Reason: Shortness Of Breath) Qty: 1 0RF simvastatin 20 MG tablet 20 mg PO DAILY budesonide-formoterol [Symbicort] 10.2 GM HFA aerosol inhaler 2 puff Inhalation BID roflumilast [Daliresp] 500 MCG tablet 500 mcg PO DAILY naproxen 500 MG tablet 500 mg PO BID Qty: 10 0RF tramadol 50 MG tablet 50 mg PO Q6H PRNQty: 10 0RF losartan 25 mg tablet 25 mg PO DAILY Patient Comments: TAKE 1 TABLET BY MOUTH ONCE DAILY FOR BLOOD PRESSURE ipratropium-albuterol 0.5 mg-3 mg(2.5 mg base)/3 mL solution for nebulization 3 ml inhalation Q6H PRNQty: 90 0RF Discharge Instructions Instructions: Aspirin (By mouth), Nitroglycerin, Rapid Release (By mouth), Pantoprazole (By mouth), Chest Pain (GEN) Additional Instructions: Radiology will call you with appointment for echocardiogram and stress test. Start aspirin 81 mg orally everyday. Start pantoprazole 40 mg orally everyday. Take nitroglycerin one tablet under your tongue, one every 5 min up to 3 times for chest pain, if the pain is not resolved call 911. Follow up with PCP. Stand Alone Forms: Nursing Discharge Form Referrals: VERNON GARDNER [Primary Care Provider] - (1-2 weeks Follow up echo and stress test ordered out patient results to PCP) Activity:: Activity as Tolerated Equipment/Supplies:: No Equipment Needed Diet:: Low Sodium Discharge Orders Discharge Orders: Discharge Order (Routine); Ordered 06/03/23 Ordered By: Rosemary Mena Other Ambulatory Orders: US echocardiogram (Routine) Location: None Selected Ordered By: Rosemary Mena [place] [facility] rest & stress grp (Routine) Location: None Selected Ordered By: Rosemary Mena Discharge Data Discharge Date/Time-TO BE ENTERED AT DEPARTURE: 06/03/23 15:37 DS: Summary Time Spent with Patient providing and/or coordinating discharge services: Greater than 30 minutes Status at Discharge Functional status at discharge: independent ambulation Overall status at discharge: patient is back to baseline Mental Status: mental status grossly normal Speech and Movement: speech and movement normal Mood: congruent mood Affect: normal affect Exam Narrative Exam Narrative: HEENT: Head: normal to inspection, no palpable skull fracture and normocephalic atraumatic Eyes: : appearance normal, both eyes and all related structures EOM intact bilaterally Pupils: PERRL : conjunctiva normal Direct ophthalmoscopy: normal light reflex, normal conjunctiva, normal visual acuity Ears: Normal TM, normal external canal Neck no JVD, supple non tender Neck: normal visual inspection, full ROM and no lymphadenopathy Chest: normal inspection of the chest Respiratory : normal respiratory effort and able to speak in complete sentences, distant, bilateral clear breath sounds Cardio Rate: regular rate, rhythm: regular rhythm normal heart sounds S1 and S2 no murmurs, gallops, or rubs GI : normal to inspection, normal bowel sounds, soft, non tender, non distended, no organomegally Back/Spine/ no CVA tenderness Thoracic/Lumbar Spine: no tenderness or deformities Skin no rashes or lesions Neuro: patient alert and no meningeal signs, Cranial Nerves: CN's II-XI intact bilaterally, Cognition: normal cognition, Speech: speech normal, Gait: normal gait, Deep tendon reflexes normal 2+ muscle strength 5/5 bilaterally Extremities, no edema, full range of motion, normal strength : normal Rectal: deferred Psych Mental Status: mental status grossly normal Speech and Movement: speech and movement normal Mood: congruent mood Affect: normal affect DS: Data Vitals/I&O Vitals and I&O: Vital Signs Temperature 35.8 C L 06/03/23 12:20 Temperature Source Tympanic 06/03/23 12:20 Pulse 88 06/03/23 12:20 Pulse Rhythm Irregular 06/03/23 07:53 Pulse 79 06/02/23 13:21 Respiratory Rate 16 06/03/23 12:20 Respiratory Effort Normal 06/03/23 07:53 Respiratory Depth Normal 06/03/23 07:53 Respiratory Pattern Normal 06/03/23 07:53 Blood Pressure 135/80 06/03/23 12:20 Blood Pressure Mean 89 06/02/23 13:16 Blood Pressure Position Supine 06/02/23 06:46 Pulse Oximetry 97 06/03/23 12:20 Oxygen Delivery Method Room Air 06/03/23 12:20 Oxygen Flow Rate 0 06/03/23 12:20 Pain Level 0 06/03/23 12:20 Comment no co of cp and/or sob 06/02/23 15:06 Intake & Output 06/02/23 06/03/23 06/03/23 23:59 11:59 23:59 Intake Total 240 / 240 Output Total 600 / 600 900 / 1800 900 / 1800 Balance -600 / -600 -900 / -1560 -660 / -1560 Weight 77.113 kg 74.3 kg Intake: Oral 240 / 240 Output: Urine 600 / 600 900 / 1800 900 / 1800 Other: Urine Color Yellow Pale Pale Yellow Yellow Urine Appearance Clear Clear Clear Urine Odor Normal Normal Normal Stool Occult Blood Negative Stool Size Small Stool Characteristics Soft Voiding Methods Toilet Toilet Toilet Data Completed and Pending Labs on day of discharge: Labs from last 24 hours 06/03/23 06/03/23 06/03/23 07:42 05:45 05:45 WBC 7.73 RBC 4.98 Hgb 13.0 L Hct 40.1 MCV 81 MCH 26.1 L MCHC 32.4 RDW 14.5 H Plt Count 230 MPV 10.5 Immature Gran % 0.6 Neutrophils % 76.1 Lymphocytes % 13.5 Monocytes % 6.6 Eosinophils % 2.6 Basophils % 0.6 Nucleated RBC % 0.0 Absolute Neutrophils 5.88 Absolute Lymphocytes 1.04 L Absolute Monocytes 0.51 Absolute Eosinophils 0.20 Absolute Basophils 0.05 Sodium Potassium Chloride Carbon Dioxide Anion Gap BUN Creatinine Est GFR (CKD-EPI 2020) Glucose Hemoglobin A1c Calcium Magnesium Troponin I < 50 Triglycerides Total Cholesterol LDL Cholesterol, Calc HDL Cholesterol TSH Add-On Test Request COMPLETED 06/03/23 06/03/23 06/02/23 05:45 05:45 17:03 WBC RBC Hgb Hct MCV MCH MCHC RDW Plt Count MPV Immature Gran % Neutrophils % Lymphocytes % Monocytes % Eosinophils % Basophils % Nucleated RBC % Absolute Neutrophils Absolute Lymphocytes Absolute Monocytes Absolute Eosinophils Absolute Basophils Sodium 138 Potassium 4.3 Chloride 105 Carbon Dioxide 22.6 Anion Gap 10.4 BUN 18 Creatinine 1.3 Est GFR (CKD-EPI 2020) 60.21 Glucose 103 Hemoglobin A1c 6.0 H Calcium 9.1 Magnesium 1.8 Troponin I < 50 Triglycerides 146 Total Cholesterol 133 LDL Cholesterol, Calc 59 HDL Cholesterol 45 TSH 1.08 Add-On Test Request 06/02/23 14:26 WBC RBC Hgb Hct MCV MCH MCHC RDW Plt Count MPV Immature Gran % Neutrophils % Lymphocytes % Monocytes % Eosinophils % Basophils % Nucleated RBC % Absolute Neutrophils Absolute Lymphocytes Absolute Monocytes Absolute Eosinophils Absolute Basophils Sodium Potassium Chloride Carbon Dioxide Anion Gap BUN Creatinine Est GFR (CKD-EPI 2020) Glucose Hemoglobin A1c Calcium Magnesium Troponin I < 50 Triglycerides Total Cholesterol LDL Cholesterol, Calc HDL Cholesterol TSH Add-On Test Request PFSH All Active Problems (Updated 06/02/23 @ 19:32 by Rosemary Mena NP) Bilateral lower extremity pain (Chronic) Hypertension (Chronic) Hyperlipidemia (Acute) COPD (chronic obstructive pulmonary disease) (Chronic) DVT prophylaxis (Acute) Acute chest pain (Acute) Creatinine elevation (Acute) Social History Smoking/Tobacco Use Status: Former Tobacco Use Smoking risk assessment performed?: Yes Drug use: Never Substance use type: does not use Housing: apartment Do you feel safe at home: Yes Do you feel safe in your relationship?: Yes Time Spent with Patient Time Spent with Patient: 70-84 minutes4 Time was spent: preparing to see the patient(eg.review tests), ordering medications,tests, procedures, referring, communicating with other health home care administrator, indepentently interpreting results, counseling the patient and care coordination
[2023-06-03 15:12] VITALS: PULSE 83
[2023-06-03 15:26] VITALS: PULSE 88
== END 2023-06-03 15:37 | disposition home or self-care (01) ==
LOC: ER 13:30 → MS 14:41
PROVIDERS: Emergency Medicine Emergency Medical Services; Admitting Provider Internal Medicine; Emergency Provider Student in an Organized Health Care Education/Training Program; PCP Nurse Practitioner; Visit Provider Internal Medicine
DX: R07.9 Chest pain, unspecified (principal); J84.10 Pulmonary fibrosis, unspecified; R05.9 Cough, unspecified; J44.9 Chronic obstructive pulmonary disease, unspecified; Z79.899 Other long term (current) drug therapy; I10 Essential (primary) hypertension; E78.5 Hyperlipidemia, unspecified; M79.662 Pain in left lower leg; M79.661 Pain in right lower leg; M79.89 Other specified soft tissue disorders; Z87.891 Personal history of nicotine dependence; Z82.49 Family history of ischemic heart disease and other diseases of the circulatory system
CPT/HCPCS: 36415; 71275; 80048; 80053; 80061; 93005; 94640; 96374; 99285; 71045; 83036; 83735; 83880; 84443; 84484; 85025; 85379; 93010; 93970; 94667; 99222; 99239; G0378; J1644; J3490

== ENCOUNTER 2023-06-14 06:06 | Emergency (ER) | payer MEDICARE, SELFPAY ==
[2023-06-14] VITALS (22 sets, daily range): BP systolic 138–153; BP diastolic 75–97; PULSE 73–92; RESP 13–25; O2SAT 96–99
--- NOTE | 2023-06-14 07:40 | DI.CT_ITS ---
Exam(s) CT CHEST PE ABD PELVIS W CLINICAL HISTORY: . TECHNIQUE: Imaging Protocol: Axial computed tomography images with coronal and sagittal reformatted images were created and reviewed CONTRAST MATERIAL: Intravenous: Omnipaque 350 Contrast volume:100 ml Oral: yes / no COMPARISON: CT CT CHEST PE CTA from 06/02/2023 FINDINGS: CHEST: Tracheobronchial tree: Patent where visualized. Pulmonary parenchyma: Apical scarring. Emphysematous changes. Dependent changes posteriorly. No co nsolidation or dominant measurable mass. Pleura: No effusion or pneumothorax. Lymph nodes: Within normal limits. Aorta: Thoracic portion non-dilated. Irregular atherosclerotic changes. No dissection. Heart: Not dilated. No pericardial effusion. Bones: Unremarkable for age. No lytic or blastic lesions.No compression fractures. ABDOMEN: Liver: Normal density. No measurable mass. Gallbladder and biliary tract: No radiodense calculus or dilation. Pancreas: Normal density, no abnormal calcifications or inflammatory process. Spleen: Normal. Kidneys: Normal size, contour and axis. No radiodense stones or obstructive uropathy. No suspicious m asses seen. Adrenal glands: No masses seen. Aorta: Abdominal portion non-dilated. Atherosclerotic changes. Lymph nodes: Within normal limits. Soft tissues: Unremarkable. PELVIS: Bladder: Symmetric distention, no gross wall thickening. Bowel: Sigmoid diverticulosis. No evidence of diverticulitis. No obstruction or bowel wall thickeni ng. Peritoneal cavity: No ascites, collection or mesenteric inflammatory response. Bones: Left hip prosthesis Reproductive organs: Within normal limits. IMPRESSION: Emphysematous changes. Atherosclerotic changes of the aorta. No evidence of dissection. No evidenc e of pulmonary emboli. No acute abnormality in the chest, abdomen or pelvis.. RADIATION DOSE DELIVERED: 1,204.36mGy.cm Total DLP DATA REPOSITORY: All CT scans at this facility are submitted to the National Radiology Data Registry (NRDR) Dose Index Registry (DIR) with the [employer] ([employer]). RADIATION OPTIMIZATION: All CT scans at this facility use at least one of these dose optimization te chniques: automated exposure control; mA and/or kV adjustment per patient size (includes targeted exa ms where dose is matched to clinical indication); or iterative reconstruction.
--- NOTE | 2023-06-14 09:45 | RT.EKG_ITS ---
APPROVED REPORT Exam: Resting ECG Reason for Exam: chest pain Patient Location: E HR:71 bpm ECG Measurements Heart Rate 71 AXIS [place] 184 P 67 QRSd 87 QRS 32 QT 403 T 44 QTc 440 Conclusion Sinus rhythm...normal P axis, V-rate 60- 99 Probable left atrial enlargement...P >50mS, <-0.10mV V1 Physician: no stemi, unchanged from prior ekg
--- NOTE | 2023-06-14 09:47 | ED.PROG_ITS ---
Date of service: 06/14/23 Time of Service: 09:47 Medical Decision Making Patient was initially seen by Dr. Nugent during downtime. Please refer to his downtime documentation for HPI, physical exam, assessment and plan. At time of signout we are awaiting CT results, as well as follow-up/repeat troponin and repeat EKG. Initial and repeat troponin are normal. EKG shows no evidence of STEMI. CTA of the chest shows no evidence of significant abnormality. Stress test was ordered for the patient on an outpatient basis which she unfortunately missed because he was here. However we were able to get him a stress test for later today. Stress test was performed and was contacted by Vernon Colon, she reviewed the stress test and states that it was normal with no significant abnormalities. Patient's chest pain has resolved. Symptoms appear clinically inconsistent with ACS or STEMI. Patient does complain of mild myalgias in his thighs. Peripheral pulses are normal, capillary refill is good. He has normal strength in his lower extremities. Symptoms appear inconsistent with arterial insufficiency. Potentially this may be related to myalgias from his statin. Otherwise patient remained stable. No clinical evidence of DVTs, PEs or other significant abnormality. Patient will be discharged home with recommendations for close follow-up with his primary care provider for reassessment, and further discussion of stress testing. Otherwise patient appears notably stable. Discussed red flags for which to return. I have extensively reviewed the treatment plan and discharge instructions with the patient. I have addressed all patient concerns at this time. The patient was made aware of what symptoms to monitor for that would warrant a return to the emergency department. Discussed the plan with the patient, they demonstrate verbal understanding and agreement with our assessment and plan at this time. The documentation in this chart was dictated using [employer] dictation software. Please excuse any dictation errors. ndications: Chest pain Medical History Medical History: HTN, HLD, COPD Cardiac Medications: Tramadol, simvastatin, roflumilast, pantoprazole, nitro, losartan, ipratropium-albuterol, budesonide formoterol, aspirin, albuterol Allergies: NKA Cardiac Risk Factors: Family hx, HTN, HLD, COPD, former smoker Previous Cardiac Procedures: None Pretest Chest Pain Characteristics: None Exercise History: Sedentary Physical Disabilities: Legs Lung Sounds: Clear to auscultation Heart Sounds: Regular Stress Test Details Test: Pharmacologic stress testing performed using 0.4 mg of regadenoson per 5 mL given IV over 10 seconds. Reason for pharmacologic stress test: physical limitation. Nuclear Acquisition: Rest Tc-99m/Stress Tc-99m 1 day Rest Isotope: Tc-99m Sestamibi. Dose: 9.4 Date: 06/14/2023 Injection Time: 1045 Stress Isotope: Tc-99m Sestamibi. Dose: 27.0 Date: 06/14/2023 Injection Time: 1330 HR Resting HR Supine: 76 bpm Max Heart Rate (APMHR): 153 bpm Target HR (85% APMHR): 130 bpm Max HR Achieved: 108 bpm % of APMHR: 71 Recovery HR: 87 bpm BP Resting BP Supine: 130/76 mmHg Max BP: 130/76 mmHg Recovery BP: 116/76 mmHg ECG Resting ECG: Sinus Rhythm Ectopy: None Stress ECG: Sinus Tachycardia ST Change: Nondiagnostic low heart rate Arrhythmia: None Recovery ECG: Sinus Rhythm Recovery ST Change: Nondiagnostic low heart rate Recovery Arrhythmia: None Clinical Stress Symptoms: Mild SOB Angina Score: None Rate Pressure Product: [id number] Stress ECG Conclusion 1. Resting electrocardiogram was within normal limits 2. Patient underwent testing using pharmacologic stress with regadenoson 3. Peak heart rate achieved was 71% of predicted for age 4. Electrocardiographic portion of the test was nondiagnostic 5. See MPI report FINDINGS: CHEST: Tracheobronchial tree: Patent where visualized. Pulmonary parenchyma: Apical scarring. Emphysematous changes. Dependent changes posteriorly. No consolidation or dominant measurable mass. Pleura: No effusion or pneumothorax. Lymph nodes: Within normal limits. Aorta: Thoracic portion non-dilated. Irregular atherosclerotic changes. No dissection. Heart: Not dilated. No pericardial effusion. Bones: Unremarkable for age. No lytic or blastic lesions.No compression fractures. ABDOMEN: Liver: Normal density. No measurable mass. Gallbladder and biliary tract: No radiodense calculus or dilation. Pancreas: Normal density, no abnormal calcifications or inflammatory process. Spleen: Normal. Kidneys: Normal size, contour and axis. No radiodense stones or obstructive uropathy. No suspicious masses seen. Adrenal glands: No masses seen. Aorta: Abdominal portion non-dilated. Atherosclerotic changes. Lymph nodes: Within normal limits. Soft tissues: Unremarkable. PELVIS: Bladder: Symmetric distention, no gross wall thickening. Bowel: Sigmoid diverticulosis. No evidence of diverticulitis. No obstruction or bowel wall thickening. Peritoneal cavity: No ascites, collection or mesenteric inflammatory response. Bones: Left hip prosthesis Reproductive organs: Within normal limits. IMPRESSION: Emphysematous changes. Atherosclerotic changes of the aorta. No evidence of dissection. No evidence of pulmonary emboli. No acute abnormality in the chest, abdomen or pelvis.. Discharge Plan Disposition Patient Disposition: Home Discharge Details Chief Complaint: Chest Pain Clinical Impression: Chest discomfort, Myalgia Primary Care Provider: VERNON VEE ED Provider: Sajan Tello Home Meds and New Rx's Prescriptions: No Action albuterol sulfate [Proventil HFA] 1 PUFF HFA aerosol inhaler 200 puff Inhalation QID PRN (Reason: Shortness Of Breath) Qty: 1 0RF simvastatin 20 MG tablet 20 mg PO DAILY budesonide-formoterol [Symbicort] 10.2 GM HFA aerosol inhaler 2 puff Inhalation BID roflumilast [Daliresp] 500 MCG tablet 500 mcg PO DAILY naproxen 500 MG tablet 500 mg PO BID Qty: 10 0RF tramadol 50 MG tablet 50 mg PO Q6H PRNQty: 10 0RF losartan 25 mg tablet 25 mg PO DAILY Patient Comments: TAKE 1 TABLET BY MOUTH ONCE DAILY FOR BLOOD PRESSURE ipratropium-albuterol 0.5 mg-3 mg(2.5 mg base)/3 mL solution for nebulization 3 ml inhalation Q6H PRNQty: 90 0RF aspirin [Children's Aspirin] 81 mg Tablet,Chewable 81 mg PO DAILY Qty: 0 0RF pantoprazole 40 mg Tablet,Delayed Release (Dr/Ec) 40 mg PO DAILY@0730 Qty: 30 0RF nitroglycerin 0.4 mg tablet, sublingual 0.4 mg sublingual Q5-15M PRNQty: 30 0RF Rx Instructions: do not exceed 3 doses per episode Discharge Instructions Instructions: Chest Pain (ED) Referrals: VERNON VEE [Primary Care Provider] -
[2023-06-14 09:55] LABS: ALT 31 U/L (16-63); AST 21 U/L (15-37); Albumin 3.4 g/dL (3.4-5.0); Alkaline Phosphatase 140 U/L (46-116); Anion Gap 10.5 mmol/L (3-11); BUN 15 mg/dL (7-18); Bilirubin, Total 0.4 mg/dL (0.2-1.0); CO2 24.5 mmol/L (21.0-32.0); CREATININE 1.5 mg/dL (0.70-1.30); Calcium 9.1 mg/dL (8.5-10.1); Chloride 103 mmol/L (98-107); Estimated GFR 50.71 (mL/min/1.73m2); Glucose 112 mg/dL (74-106); Lipase 50 U/L (16-77); Magnesium 1.8 mg/dL (1.8-2.4); Sodium 138 mmol/L (136-145); TSH (W/Ref FT4) 1.77 uIU/mL (0.36-3.74); Total Protein 7.3 g/dL (6.4-8.2); Troponin I < 50 ng/L (<or=60)
[2023-06-14 09:58] LABS: INR 0.9 (0.9-1.1); PTT Activated 22.5 sec (21.5-31.9); Prothrombin Time 9.3 sec (9.3-11.0)
--- NOTE | 2023-06-14 10:15 | RT.EKG_ITS ---
APPROVED REPORT Exam: Resting ECG Reason for Exam: chest pain Patient Location: E HR:96 bpm ECG Measurements Heart Rate 96 AXIS OH 157 P 68 QRSd 88 QRS 50 QT 379 T 59 QTc 478 Conclusion Age and gender not entered, assume 50 yo male for purpose of ECG interpretation Sinus rhythm...normal P axis, V-rate 60- 99 Probable left atrial enlargement...P >50mS, <-0.10mV V1
[2023-06-14 10:28] LABS: Abs Immature Grans 0.09 10^3/uL (0.0-0.06); Absolute Basophil Count 0.07 10^3/uL (0.0-0.2); Absolute Eosinophil Count 0.22 10^3/uL (0.0-0.7); Absolute Lymphocyte Count 1.31 10^3/uL (1.2-3.4); Absolute Monocyte Count 0.73 10^3/uL (0.1-0.8); Absolute Neutrophil Count 8.22 10^3/uL (1.2-6.7); Basophils % 0.7; Eosinophils % 2.1; HCT 43.8 % (40.0-50.0); HGB 13.8 g/dL (13.5-17.5); Immature Grans % 0.8; Lymphocytes % 12.3; MCH 25.6 pg (27.0-33.0); MCHC 31.5 % (32.0-36.0); MCV 81 fL (80-95); MPV 10.3 fL (8.0-11.0); Monocytes % 6.9; Neutrophils % 77.2; Platelet Count 310 10^3/uL (130-400); RBC 5.39 10^6/uL (4.36-5.78); RDW 14.6 % (11.8-14.1); RDW-SD 42.5 fL; WBC 10.64 10^3/uL (4.4-10.8)
[2023-06-14 10:34] LABS: Troponin I < 50 ng/L (<or=60)
[2023-06-14] MEDS: Omnipaque 350 MG/ML 500 ML BTL-Imaging package 100 ML IJ (10:42)
[2023-06-14] MEDS: Normal Saline - Diluent 50 ML VIAL IJ (10:43)
--- NOTE | 2023-06-14 12:15 | DI.NM_ITS ---
APPROVED REPORT Exam: Pharmacologic Patient Location: ER Room/Bed: Stress Nurse: Yarelis Tomlin RN Ordering Provider:RAF YAN, Contact Number: [phone] BMI: 25.69 Baseline Rhythm: Sinus Rhythm Indications: Chest pain Medical History Medical History: HTN, HLD, COPD Cardiac Medications: Tramadol, simvastatin, roflumilast, pantoprazole, nitro, losartan, ipratropium-a lbuterol, budesonide formoterol, aspirin, albuterol Allergies: NKA Cardiac Risk Factors: Family hx, HTN, HLD, COPD, former smoker Previous Cardiac Procedures: None Pretest Chest Pain Characteristics: None Exercise History: Sedentary Physical Disabilities: Legs Lung Sounds: Clear to auscultation Heart Sounds: Regular Stress Test Details Test: Pharmacologic stress testing performed using 0.4 mg of regadenoson per 5 mL given IV over 10 s econds. Reason for pharmacologic stress test: physical limitation. Nuclear Acquisition: Rest Tc-99m/Stress Tc-99m 1 day Rest Isotope: Tc-99m Sestamibi. Dose: 9.4 Date: 06/14/2023 Injection Time: 1045 Stress Isotope: Tc-99m Sestamibi. Dose: 27.0 Date: 06/14/2023 Injection Time: 1330 HR Resting HR Supine: 76 bpm Max Heart Rate (APMHR): 153.235437 bpm Target HR (85% APMHR): 130.390740 bpm Max HR Achieved: 108 bpm % of APMHR: 70.59 Recovery HR: 87 bpm BP Resting BP Supine: 130/76 mmHg Max BP: 130/76 mmHg Recovery BP: 116/76 mmHg ECG Resting ECG: Sinus Rhythm Ectopy: None Stress ECG: Sinus Tachycardia ST Change: Nondiagnostic low heart rate Arrhythmia: None Recovery ECG: Sinus Rhythm Recovery ST Change: Nondiagnostic low heart rate Recovery Arrhythmia: None Clinical Stress Symptoms: Mild SOB Angina Score: None Rate Pressure Product: [id number] Stress ECG Conclusion 1. Resting electrocardiogram was within normal limits 2. Patient underwent testing using pharmacologic stress with regadenoson 3. Peak heart rate achieved was 71% of predicted for age 4. Electrocardiographic portion of the test was nondiagnostic 5. See MPI report Stress Test Summary STAGE HR BP SpO2 Symptoms NOTES Supine 76 130/76 97 1 min post Lexiscan injection 93 118/84 93 Mild SOB 3 min post Lexiscan injection 100 128/80 6 min post Lexiscan injection 87 116/76 97 All symptoms resolved MPI Conclusion Myocardial perfusion is normal. There is no ischemia or evidence of prior myocardial infarction Calculated EF is 40%, though visually it appears within the range of normal. Wall motion is normal Radiologist Interpretation Radiologist agrees with Assistant Dean's Interpretation. Radiologist Interpretation by: Ronda Steel MD Interpretation Date/Time: 06/14/2023 17:48:02
[2023-06-14] MEDS: Regadenoson 0.4 MG/5 ML SYR IVP (13:53)
== END 2023-06-14 15:36 | disposition home or self-care (01) ==
PROVIDERS: Emergency Provider Student in an Organized Health Care Education/Training Program; PCP Nurse Practitioner
DX: R07.9 Chest pain, unspecified (principal); M79.18 Myalgia, other site; Z79.899 Other long term (current) drug therapy; I10 Essential (primary) hypertension; J44.9 Chronic obstructive pulmonary disease, unspecified; E78.5 Hyperlipidemia, unspecified; M79.605 Pain in left leg; M79.604 Pain in right leg
CPT/HCPCS: 71275; 74177; 78452; 80053; 83690; 93005; 93016; 93018; 96374; 96375; 99285; 83735; 84443; 84484; 85025; 85610; 85730; 93010; 93017; J2270; J2785

== ENCOUNTER → 2023-06-18 02:30 | Outpatient (CLI) | payer MEDICARE, SELFPAY ==
--- NOTE | 2023-06-18 15:00 | DI.US_ITS ---
APPROVED REPORT EXAM: Comprehensive 2D, Doppler, and color-flow Echocardiogram Patient Location: Out-Patient Crude Unit Operator: Beatris Orellana RDCS (AE) Indications: Chest pain Other Information Study Quality: Adequate Conclusion Normal left ventricular wall thickness and chamber size. Ejection fraction is 50 to 55%. There are no segmental wall motion abnormalities Normal right ventricular size and systolic function The atria are normal in size Aortic valve is mildly sclerotic and trileaflet without stenosis or regurgitation Mildly dilated ascending aorta 3.6 cm Wall motion Left Ventricle The left ventricle is normal size. Overall left ventricular function is borderline There is normal le ft ventricular wall thickness. There is normal LV segmental wall motion. There is no ventricular sept al defect visualized. LVEF is 50-55%. Right Ventricle The right ventricle is normal size. The right ventricular systolic function is normal. Atria The left atrium size is normal. The right atrium size is normal. The interatrial septum is intact wit h no evidence for an atrial septal defect. Aortic Valve The Aortic valve is mildly sclerotic. Aortic valve is trileaflet. There is no aortic valvular stenosi s. No aortic regurgitation is present. Mitral Valve The mitral valve is normal in structure. No evidence of mitral valve stenosis. Mild mitral regurgitat ion. Tricuspid Valve The tricuspid valve is normal in structure. There is no tricuspid valve stenosis. Trace tricuspid reg urgitation. Unable to assess PA pressure. Pulmonic Valve The pulmonary valve is normal in structure. There is no pulmonic valvular stenosis. Trace pulmonic re gurgitation. Great Vessels The aortic root is normal in size. The ascending aorta is mildly dilated. Aortic arch is not well vis ualized. IVC is normal in size and collapses >50% with inspiration. Pericardium There is no pericardial effusion. 2D Dimensions IVSD d PLAX 0.88 cm M: 0.6-1.2 Ao Root d 3.34 cm M: 3.1 - 3.7 LVPW d PLAX 0.89 cm M: 0.6 - 1.2 Ao Asc Diam d 3.64 cm M: 2.6 - 3.4 LVID d PLAX 4.46 cm M: 4.2 - 5.8 LVDs 3.28 cm M: 2.5 - 4.0 LV EF Teichholz 52.1 % FS 26.53 % LV EDV (Teich) 90.7 mL LV ESV (Teich) 43.5 mL M-Mode TAPSE 1.97 cm (M/F) >1.7 Auto EF LV EDV A4C 89.4 mL LV EDV A2C 87.5 mL LV EDV BP 88.6 mL LV ESV A4C 44.5 mL LV ESV A2C 43.1 mL LV ESV BP 44.5 mL LVEF(%) A4C 50.2 % LVEF(%) A2C 50.7 % LVEF(%) BP 49.8 % LV SV A4C 44.9 ml LV SV A2C 44.4 ml LV SV BP 44.1 ml LV CO A4C 3.6 L/min LV CO A2C 3.0 L/min LV CO BP 3.3 L/min HR A4C 79.47 BPM HR A2C 68.57 BPM LV EDV Index (BP) LA Volume LA Length A4C 5.3 cm LA Length A2C 5.2 cm LA Area A4C s 12.91 cm2 LA Area A2C s 16.28 cm2 LA Vol A4C A-L 26.90 mL LA Vol A2C A-L 43.06 mL LA Vol Biplane A-L 34.2 mL LA Vol/BSA A4C A-L LA Vol/BSA A2C A-L LA Vol/BSA BP A-L 17.5 mL/m2 LA Vol A4C MOD 25.3 mL LA Vol A2C MOD 40.9 mL LA Vol BP MOD 32.1 mL RA Volume RA Area A4C 11.0 cm2 RA ESV A4C (A-L) 23.6mL RA Vol/BSA A4C A-L RA Length A4C 4.3 cm RA ESV A4C (MOD) 23.0mL LV Diastology MV E' medial 0.066 (>0.07 m/s) MV E Vmax 0.58 (0.4-1.3 m/s) MV E/E' MED 8.78 (<14) MV A Vmax 0.85 (0.4-1.3 m/s) MV E' lateral 0.082 (>0.1 m/s) E/A Ratio 0.7 MV E/E' LAT 7.07 (<14) MV E' Average 0.074 m/s MV E/E'(average) 7.83 Aortic Valve AoV Vmax 1.10 m/s LVOT Vmax 0.83 m/s AoV Peak Grad 4.8 mmHg LVOT Peak Grad 2.8 mmHg AoV Area (Vmax) 2.41 cm2 LVOT VTI 0.182 m AoV VTI 0.236 m LVOT Mean Grad 1.3 mmHg AoV Mean Govind. 0.78 m/s LVOT SV 57.76 mL AoV Mean Grad 2.7 mmHg LVOT Diam s 2.00 cm AoV Area (VTI) 2.45 cm2 Velocity Ratio 0.75 Mitral Valve MV Vmax TIPS 0.83 m/s MV Mean Grad 1.1 (<2mmHg) MV VTI 0.171 m Pulmonary Valve PV Vmax 0.98 (0.5-1.5 m/s) RVOT Vmax 0.47 m/s PV Peak Grad 3.9 mmHg RVOT Peak Gr. 0.9 mmHg PV Mean Govind 0.66 m/s RVOT VTI 0.113 m PV Mean Grad 2.0 mmHg RVOT Mean Gr. 0.5 mmHg Tricuspid Valve TV S' 0.12 m/s
== END ==
PROVIDERS: PCP Nurse Practitioner; Visit Provider Nurse Practitioner
DX: R07.9 Chest pain, unspecified (principal)
CPT/HCPCS: 93306

== ENCOUNTER 2024-07-06 09:42 | Emergency (ER) | payer MEDICARE, SELFPAY ==
[2024-07-06] VITALS (36 sets, daily range): BP systolic 111–147; BP diastolic 63–97; PULSE 74–109; RESP 10–26; O2SAT 96–100
--- NOTE | 2024-07-06 09:30 | RT.EKG_ITS ---
APPROVED REPORT Exam: Resting ECG Reason for Exam: chest pain Patient Location: E HR:104 bpm ECG Measurements Heart Rate 104 AXIS SC 168 P 60 QRSd 86 QRS 36 QT 354 T 48 QTc 466 Conclusion Sinus tachycardia...rate> 99 Probable left atrial enlargement...P >50mS, <-0.10mV V1
--- NOTE | 2024-07-06 09:58 | ED.GENADUL_ITS ---
Discharge Plan Disposition Patient Disposition: Home Condition: Good Discharge Details Clinical Impression: Atypical chest pain Primary Care Provider: VERNON VEE ED Provider: Adriane Castillo Home Meds and New Rx's Prescriptions: Continued albuterol sulfate [Proventil HFA] 1 PUFF HFA aerosol inhaler 200 puff Inhalation QID PRN (Reason: Shortness Of Breath) Qty: 1 0RF roflumilast [Daliresp] 500 MCG tablet 500 mcg PO DAILY naproxen 500 MG tablet 500 mg PO BID Qty: 10 0RF tramadol 50 MG tablet 50 mg PO Q6H PRNQty: 10 0RF losartan 25 mg tablet 25 mg PO DAILY Patient Comments: TAKE 1 TABLET BY MOUTH ONCE DAILY FOR BLOOD PRESSURE ipratropium-albuterol 0.5 mg-3 mg(2.5 mg base)/3 mL solution for nebulization 3 ml inhalation Q6H PRNQty: 90 0RF aspirin [Children's Aspirin] 81 mg Tablet,Chewable 81 mg PO DAILY Qty: 0 0RF pantoprazole 40 mg Tablet,Delayed Release (Dr/Ec) 40 mg PO DAILY@0730 Qty: 30 0RF Trelegy Ellipta 200-62.5-25 mcg blister with device 1 inh INHALATION DAILY Patient Comments: INHALE 1 PUFF BY MOUTH DAILY (RINSE, GARGLE AND SPIT AFTER USING) Discontinued atorvastatin 40 mg tablet 40 mg PO DAILY Patient Comments: TAKE ONE TABLET BY MOUTH EVERY DAY AT BEDTIME FOR CHOLESTEROL Discharge Instructions Instructions: Chest Pain, Adult ED Additional Instructions: Your labs and imaging are reassuring here today. I believe your chronic shortness of breath is likely associate with your COPD. Worried that some of your weakness, fatigue and muscle aches may be associated with transitioning from simvastatin to atorvastatin. Please stop this medication and call primary care tomorrow to discuss. You may also discussed possibility for repeat stress test with your primary care but as we discussed, you should wait until your current symptoms that are likely associated medication side effect, have resolved. If you develop any increased pain, increased work of breathing, fev er/chills or other new/worsening symptoms please seek care urgently once again. Referrals: VERNON VEE [Primary Care Provider] - Discharge Data Discharge Date/Time-TO BE ENTERED AT DEPARTURE: 07/06/24 13:15 HPI General Date/Time Provider Initiated Documentation: 07/06/24 09:48 . Limitations to Documentation: no limitations . Information obtained by: patient, family, RN notes reviewed and old records reviewed . History of Present Illness 68 year old M presents to the emergency department with the chief complaint of chest pain, fatigue, shortness of breath, described as moderate and similar to prior episodes (has chronic SOB, associates with COPD), Quality is described as aching, and is localized to the chest. Patient started experiencing this day(s) and it has been in termittent. No relieving factors improve symptom(s), Immoblization worsens symptoms (notices more when at rest) . Patient notes no other symptoms.. Patient did receive the following treatments prior to arrival, none Related Data Home Medications ?Medication ?Instructions ?Recorded ?Confirmed albuterol sulfate 90 mcg/actuation 200 puff inhalation QID PRN 12/02/12 07/06/24 aerosol inhaler (Proventil HFA) Shortness Of Breath #1 inh naproxen 500 mg tablet 500 mg PO BID #10 tabs 10/23/17 07/06/24 roflumilast 500 mcg tablet 500 mcg PO DAILY 10/23/17 07/06/24 (Daliresp) tramadol 50 mg tablet 50 mg PO Q6H PRN #10 tabs 10/23/17 07/06/24 ipratropium 0.5 mg-albuterol 3 mg 3 ml inhalation Q6H PRN #90 mL 06/09/22 07/06/24 (2.5 mg base)/3 mL nebulization soln losartan 25 mg tablet 25 mg PO DAILY 06/09/22 07/06/24 aspirin 81 mg chewable tablet 81 mg PO DAILY #0 tabs 06/03/23 07/06/24 (Children's Aspirin) pantoprazole 40 mg tablet,delayed 40 mg PO DAILY@0730 #30 tabs 06/03/23 07/06/24 release fluticasone fur. 200 mcg-umeclid 1 inh inhalation DAILY 07/06/24 07/06/24 62.5 mcg-vilant 25 mcg inhalat.powder (Trelegy Ellipta) Previous Rx's ?Medication ?Instructions ?Recorded albuterol sulfate 90 mcg/actuation 200 puff inhalation QID PRN 12/02/12 aerosol inhaler (Proventil HFA) Shortness Of Breath #1 inh naproxen 500 mg tablet 500 mg PO BID #10 tabs 10/23/17 tramadol 50 mg tablet 50 mg PO Q6H PRN #10 tabs 10/23/17 ipratropium 0.5 mg-albuterol 3 mg 3 ml inhalation Q6H PRN #90 mL 06/09/22 (2.5 mg base)/3 mL nebulization soln aspirin 81 mg chewable tablet 81 mg PO DAILY #0 tabs 06/03/23 (Children's Aspirin) pantoprazole 40 mg tablet,delayed 40 mg PO DAILY@0730 #30 tabs 06/03/23 release Allergies Allergy/AdvReac Type Severity Reaction Status Date / Time No Known Allergies Allergy Unverified 07/06/24 09:52 General Stated Complaint: Chest Pain RANDY: 3 Review of Systems Constitutional Constitutional: Reports as per HPI, Denies chills, Denies fever(s), Denies headache(s) and Denies poor appetite Eyes Eyes: Denies change in vision ENT Ears, Nose, Mouth, and Throat: Denies dizziness and Denies headache(s) Cardiovascular Cardiovascular: Reports as per HPI Respiratory Respiratory: Reports as per HPI, Denies chest congestion, Denies cough, Denies pain on inspiration and Denies pain with cough Gastrointestinal Gastrointestinal: Reports as per HPI, Denies abdominal pain, Denies diarrhea, Denies nausea and Denies vomiting Genitourinary Genitourinary: Denies system reviewed and no additional complaints, except as documented (denies change in urinary habits) Musculoskeletal Musculoskeletal: Reports as per HPI and Denies back pain Integumentary/Breasts Skin/Breast: Reports as per HPI and Denies rash Neurologic Neurologic: Reports as per HPI, Denies dizziness and Denies headache(s) Exam Const General: cooperative, healthy appearing, comfortable, no acute distress, well developed and anxious Nutritional Appearance: average body habitus and well nourished Orientation: alert, awake and oriented x3 HENMT Head: normal to inspection Ears: hearing grossly normal bilaterally Mouth: moist mucous membranes Chest Chest: normal inspection of the chest, normal palpation of entire chest wall and no crepitus Resp Effort & Inspection: normal respiratory effort, able to speak in complete sentences and no respiratory distress Auscultation: crackles bilaterally in the lower lung [place], no rales, no rhonchi and no wheezes Cardio Rate: regular rate Rhythm: regular rhythm Heart Sounds: S1 normal and S2 normal GI Inspection: normal to inspection, no edema and non-distended Palpation: soft and nontender Skin General skin exam: no rashes or lesions noted Trauma: no lacerations or abrasions Neuro General: patient alert, patient awake and patient oriented x3 Cognition: normal cognition Speech: speech normal Gait: normal gait Extrem General: normal to inspection, capillary refill normal, no pedal edema, no calf tenderness and normal gait Psych Appearance: grossly normal (appears anxious) and well kempt Mental Status: mental status grossly normal Speech and Movement: speech and movement normal Course Vital Signs Vital signs: Vital Signs Pulse 95 H 07/06/24 09:47 Respiratory Rate 24 07/06/24 09:47 Blood Pressure 145/90 H 07/06/24 09:47 Pulse Oximetry 98 07/06/24 09:47 Temperature Source Temporal Artery Scan 07/06/24 09:47 Pulse 95 H 07/06/24 09:47 Respiratory Rate 24 07/06/24 09:47 Respiratory Effort Short of Breath 07/06/24 09:51 Blood Pressure 145/90 H 07/06/24 09:47 Blood Pressure Position Sitting 07/06/24 09:47 Pulse Oximetry 98 07/06/24 09:47 Oxygen Delivery Method Room Air 07/06/24 09:47 Oxygen Flow Rate 0 07/06/24 09:47 Pain Level 0 07/06/24 09:47 Medical Decision Making Patient is a pleasant 60-year-old male, accompanied by his son, presenting today with chief complaint of shortness of breath and chest discomfort. Patient reports that he has long history of shortness of breath which he associates with known COPD, particular with exertion. However, more recently he has been having increased with his shortness of breath and today developed discomfort in his chest, indicates central area of chest as area of pain. He reports that he was playing videogames when this came on. Has not noted any change in the pain associated with exertion. States that overall, pain has completely subsided but possible minimal discomfort still. No change with food although he reports that he has had issues with gastritis in the past. He has not had any recent medication changes. He reports that he was just recently told that he has hardened arteries by his primary care. Patient did have a stress test as well as echo completed last year. Reviewed nuclear medicine scan patient had about 1 year ago. Myocardial perfusion was normal with no ischemia or MN noted, EF 40% although it does state that it visually appeared to be within normal range, this would be within the calculated EF. On exam, patient appears anxious. Slightly tachycardic with a heart rate of 100. He is oxygenating well on room air at 98%. Hemodynamically stable. Some slight crackles in bilateral bases of his lungs. No lower extremity edema. No calf pain. Normal cardiac exam. Abdomen is benign. No rashes noted on the chest. Patient reports he also has been having some fatigue, generalized aches. Will give patient aspirin as he is continue to have some mild chest discomfort. However, he does have atypical presentation as this did come on while he was in a seated position and is not exertionally based. So have any pain radiating into the back to suggest something like a pneumothorax. Has not had any change of his shortness of breath, low suspicion for PE. Considered a gastric source given his history and will give a dose of Mylanta. No improvement with patient's above medications. He denies any significant change. Labs were reviewed. Patient has a mild anemia which she reports being worked up by his primary care. CMP significant for creatinine of 1.6 which appears to be patient's baseline. Alk phos is also elevated at 147 which again, appears to be baseline. Initial troponin within normal range. FINDINGS: Lungs: Interstitial prominence and mild basilar airspace disease. Pleural spaces: No significant pleural effusion. Heart/Mediastinum: No cardiomegaly. Bones/joints: Degenerative change. IMPRESSION: Interstitial prominence and mild basilar airspace disease FINDINGS: VASCULATURE: Pulmonary arteries: Normal. No pulmonary emboli. Aorta: Moderate aortic atherosclerosis. No aortic aneurysm or dissection. Moderate coronary artery calcification. 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 SMA origin is widely patent. Renal arteries: There is calcification and least moderate stenosis of the right renal artery origin. The left renal artery is widely patent. JUVENCIO JAMES Preliminary Radiology Report GEOPHYSICAL PARTY CHIEF (QA) DISCREPANCY? If there is a discrepancy between the preliminary and final interpretation, please notify [facility] via [email or web address]. If you do not have access to our QA portal, call our QA team at [phone] CONFIDENTIALITY STATEMENT This report is intended only for the use of the referring physician, and only in accordance with law, If you received this in error, call [phone] Page 2 of 2 Left iliac arteries: Heavy atherosclerosis of the left iliac artery. There is at least moderate stenosis of the distal common iliac artery just proximal to the bifurcation. CHEST: Lungs: The lungs are severely emphysematous. There is scarring in the right apex which appears unchanged from previous exam. No new focal infiltrate or nodule. Pleural spaces: Unremarkable. No pneumothorax. No pleural effusion. Heart: Unremarkable. No cardiomegaly. No pericardial effusion. ABDOMEN AND PELVIS: Liver: No mass. Gallbladder and biliary ducts: Unremarkable. No calcified stones. No ductal dilation. Pancreas: Unremarkable. No mass. No ductal dilation. Spleen: Unremarkable. No splenomegaly. Adrenal glands: Unremarkable. No mass. Kidneys: Unremarkable kidneys. No solid mass. No hydronephrosis. Stomach and bowel: Unremarkable. No obstruction. No mucosal thickening. Intraperitoneal space: Unremarkable. No free air. No significant fluid collection. Lymph nodes: There are small mediastinal and hilar lymph nodes. The most prominent in the right hilum measures 2.3 cm. It appears similar to the pr evious CT. Moderate atherosclerosis of the right iliac artery. No severe stenosis or aneurysm. Bones/joints: Unremarkable. No acute fracture. Soft tissues: Unremarkable. IMPRESSION: No evidence of aortic aneurysm or dissection. There is fairly extensive atherosclerosis. 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 Discussed his findings with the patient. Further broadening of diagnoses were discussed with the patient. He did appear quite anxious when he first came in but he continues to report that he is not an anxious person. Patient was switched this week from simvastatin to atorvastatin. This may be the underlying etiology causing him to have some fatigue, weakness and potentially muscle pain. Will add on a CK. CK WNL, 2 high-sensitivity troponins also within normal limits. Patient feels safer discharge. Will have him stop the atorvastatin and call primary care tomorrow to discuss. Encourage hydration. Strict return precautions were given. Patient has excellent local support is able to stay with family. All of their questions and concerns were addressed and they are in agreement with this plan. Quality:[facility] Health Related Social Needs: No Data to Display PFSH All Active Problems (Updated 07/06/24 @ 13:03 by QUENTIN Ridley) Atypical chest pain (Acute) Hypertension (Chronic) Hyperlipidemia (Acute) COPD (chronic obstructive pulmonary disease) (Chronic) Social History Smoking/Tobacco Use Status: Former Tobacco Use Smoking risk assessment performed?: Yes Drug use: Never Substance use type: does not use Housing: apartment Do you feel safe at home: Yes Do you feel safe in your relationship?: Yes PAWSS Have you Been Recently Intoxicated or Drunk Within the Last 30 days?: No Have you Ever Experienced Previous Episodes of Alcohol Withdrawal?: No Have you ever Experienced Withdrawal Seizures?: No Have you ever Experienced Delirium Tremens(DT)s?: No Have you ever undergone Alcohol Rehabilitation Treatment (i.e, inpt ot outpatient treatment programs)?: No Have you ever Experienced Blackouts?: No Have you ever Combined Alcohol with other Downers within the last 90 days?: No Have you ever Combined Alcohol with any other Substance of Abuse during the last 90 days?: No Result: 0
[2024-07-06] MEDS: Mylanta Suspension 30 ML CUP PO (10:15)
[2024-07-06] MEDS: Aspirin 81 MG CHEW 243 MG CH (10:16)
[2024-07-06 10:23] LABS: Abs Immature Grans 0.05 10^3/uL (0.0-0.06); Absolute Basophil Count 0.06 10^3/uL (0.0-0.2); Absolute Eosinophil Count 0.31 10^3/uL (0.0-0.7); Absolute Lymphocyte Count 0.84 10^3/uL (1.2-3.4); Absolute Monocyte Count 0.46 10^3/uL (0.1-0.8); Absolute Neutrophil Count 8.15 10^3/uL (1.2-6.7); Basophils % 0.6 %; Eosinophils % 3.1 %; HCT 43.6 % (40.0-50.0); HGB 12.9 g/dL (13.5-17.5); Immature Grans % 0.5 %; Lymphocytes % 8.5 %; MCH 21.6 pg (27.0-33.0); MCHC 29.6 % (32.0-36.0); MCV 73 fL (80-95); MPV 10.1 fL (8.0-11.0); Monocytes % 4.7 %; Neutrophils % 82.6 %; Platelet Count 302 10^3/uL (130-400); RBC 5.96 10^6/uL (4.36-5.78); RDW 18.1 % (11.8-14.1); RDW-SD 44.9 fL; WBC 9.87 10^3/uL (4.4-10.8)
[2024-07-06 10:35] LABS: ALT 26 U/L (16-63); AST 20 U/L (15-37); Albumin 3.6 g/dL (3.4-5.0); Alkaline Phosphatase 147 U/L (46-116); Anion Gap 10.4 mmol/L (3-11); BUN 16 mg/dL (7-18); Bilirubin, Total 0.56 mg/dL (0.2-1.0); CO2 25.6 mmol/L (21.0-32.0); CREATININE 1.6 mg/dL (0.70-1.30); Calcium 9.6 mg/dL (8.5-10.1); Chloride 103 mmol/L (98-107); Estimated GFR 46.64 (mL/min/1.73m2); Glucose 165 mg/dL (74-106); Magnesium 1.9 mg/dL (1.8-2.4); Potassium 3.9 mmol/L (3.5-5.1); Sodium 139 mmol/L (136-145); Total Protein 7.7 g/dL (6.4-8.2); Troponin I 4 ng/L (<or=76)
--- NOTE | 2024-07-06 10:37 | DI.RAD_ITS ---
Exam(s) XR CHEST 2V PA LATERAL EXAM: XR CHEST 2V PA LATERAL CLINICAL HISTORY: CP, SOB TECHNIQUE: 2D digital imaging was performed. Two views. COMPARISON: CR,XR XR PORTABLE CHEST AP from 06/02/[address] CHEST PE ABD PELVIS W from 06/14/2023 FINDINGS: HEART: Normal size. Aorta: Not dilated. PULMONARY VASCULATURE: Normal. MEDIASTINUM: Unremarkable. LUNGS: Increased streaky density seen at the lung bases. Atelectasis versus pneumonia or fibrotic ch anges. PLEURAL SPACE: No pleural effusion or pneumothorax. Apical pleural thickening. BONE:Unremarkable for age. SOFT TISSUES: Unremarkable. IMPRESSION: Increased densities at lung bases could indicate infiltrate, atelectasis or fibrotic changes. DATA REPOSITORY: RADIATION DOSE DELIVERED:
[2024-07-06 10:48] LABS: Diff Comment RBC Morph Reviewed; Microcytosis 1+
[2024-07-06 10:49] LABS: Poikilocytes 1+
--- NOTE | 2024-07-06 11:00 | DI.CT_ITS ---
Exam(s) CT CHEST PE CTA EXAM: CT CHEST PE CTA CLINICAL HISTORY: SOB, CP. TECHNIQUE: Imaging Protocol: Axial CT angiography was performed with multi-slice acquisition and mu lti-planar reconstructions as well as axial, coronal and sagittal MIP reconstructions. CONTRAST MATERIAL: Intravenous: Omnipaque 350 Contrast volume:100 ml COMPARISON: CT CT CHEST PE ABD PELVIS W from 06/14/2023 FINDINGS: Pulmonary Arteries: No evidence of filling defect to suggest pulmonary emboli. Mediastinum and Marcia: No dominant adenopathy or fluid collection. Pulmonary parenchyma: No consolidation or dominant measurable mass. Dependent changes. Mild emphy sematous and chronic interstitial changes. Scattered calcified granulomas. Pleura: No effusion or pneumothorax. Heart: The heart is not dilated. No coronary artery calcifications are seen. Aorta: Ectatic. No dissection. Atherosclerotic changes. Upper abdomen: No acute findings. Hepatic steatosis. Bones: Unremarkable for age. Tubes, Catheters, and Lines: None Soft tissues: Unremarkable. IMPRESSION: No evidence of pulmonary embolism or aortic dissection. Atherosclerotic changes noted in the aorta. RADIATION DOSE DELIVERED: Total DLP DATA REPOSITORY: All CT scans at this facility are submitted to the National Radiology Data Registry (NRDR) Dose Index Registry (DIR) with the [employer] (ACR). RADIATION OPTIMIZATION: All CT scans at this facility use at least one of these dose optimization te chniques: automated exposure control; mA and/or kV adjustment per patient size (includes targeted exa ms where dose is matched to clinical indication); or iterative reconstruction.
--- NOTE | 2024-07-06 11:02 | DI.VRAD_ITS ---
PROCEDURE INFORMATION: Exam: XR Chest Exam date and time: 07/06/2024 10:36 AM Age: 68 years old Clinical indication: Shortness of breath TECHNIQUE: Imaging protocol: Radiologic exam of the chest. Views: 2 views. COMPARISON: CT CHEST PE ABD PELVIS W 06/14/2023 7:41 AM FINDINGS: Lungs: Interstitial prominence and mild basilar airspace disease. Pleural spaces: No significant pleural effusion. Heart/Mediastinum: No cardiomegaly. Bones/joints: Degenerative change. IMPRESSION: Interstitial prominence and mild basilar airspace disease. Dictated and Authenticated by: Jaime Pal MD. Ordering:FITO Forrest MD
[2024-07-06] MEDS: Normal Saline - Diluent 50 ML VIAL IJ (11:10)
[2024-07-06] MEDS: Omnipaque 350 MG/ML 100 ML BTL IJ (11:10)
[2024-07-06] MEDS: Lactated Ringers 500 ML IV (11:23)
--- NOTE | 2024-07-06 11:37 | DI.VRAD_ITS ---
PROCEDURE INFORMATION: Preliminary report Exam: CTA Chest With Contrast Exam date and time: 07/06/2024 11:11 AM Age: 68 years old Clinical indication: Other: SOB, cp TECHNIQUE: Imaging protocol: Computed tomographic angiography of the chest with contrast. Exam focused on the arteries. 3D rendering (Not supervised by radiologist): MIP and/or 3D reconstructed images were created by the technologist. Radiation optimization: All CT scans at this facility use at least one of these dose optimization techniques: automated exposure control; mA and/or kV adjustment per patient size (includes targeted exams where dose is matched to clinical indication); or iterative reconstruction. Contrast material: OMNI 350; Contrast volume: 100 ml; Contrast route: INTRAVENOUS (IV); COMPARISON: CT CHEST PE ABD PELVIS W 06/14/2023 7:41 AM FINDINGS: Pulmonary arteries: No pulmonary embolus in the opacified pulmonary arteries. Aorta: Atherosclerotic plaque and calcification in the ectatic thoracic aorta. Lungs: Emphysematous change, interstitial disease, chronic granulomatous disease, and mild bilateral airspace disease. Pleural spaces: Stable poorly defined biapical pleural based nodular densities. No dependent pleural effusion. Heart: No cardiomegaly or significant coronary artery calcification. Lymph nodes: Subcentimeter lymph nodes. Upper abdomen: Fatty infiltration of the liver. Splenic granulomata. Bones/joints: Schmorl's nodes and degenerative change. Soft tissues: Unremarkable. IMPRESSION: 1. No pulmonary embolus in the opacified pulmonary arteries. 2. Emphysematous change, interstitial disease, chronic granulomatous disease, and mild bilateral airspace disease. 3. Additional findings as described above. Dictated and Authenticated by: Jaime Pal MD. Ordering:FITO Forrest MD
[2024-07-06 11:59] LABS: Troponin I 4 ng/L (<or=76)
[2024-07-06 12:39] LABS: Creatine Kinase 44 U/L (39-308)
== END 2024-07-06 13:15 | disposition home or self-care (01) ==
PROVIDERS: Emergency Provider Physician Assistant; PCP Nurse Practitioner
DX: R07.89 Other chest pain (principal); R06.02 Shortness of breath; J44.9 Chronic obstructive pulmonary disease, unspecified
CPT/HCPCS: 36415; 71275; 80053; 82550; 93005; 99285; 71046; 83735; 84484; 85025; 93010; 99283; J3490

== ENCOUNTER 2024-07-31 02:10 | Outpatient (CLI) | payer MEDICARE, SELFPAY ==
--- NOTE | 2024-07-31 12:30 | DI.US_ITS ---
APPROVED REPORT EXAM: Comprehensive 2D, Doppler, and color-flow Echocardiogram Patient Location: Out-Patient [place] Boss: Beatris Orellana RDCS (AE) Indications: Atherosclerosis of aorta Other Information Study Quality: Adequate Conclusion Normal left ventricular wall thickness and chamber size. Ejection fraction is 50%. No segmental wal l motion abnormalities are noted Normal right ventricular size and function Both atria are normal in size There are no structural valvular abnormalities Mild mitral regurgitation Ascending aorta measures 3.5 cm Wall motion Left Ventricle The left ventricle is normal size. Left ventricular systolic function is mildly decreased. There is n ormal left ventricular wall thickness. There is global hypokinesis of the left ventricle. There is no ventricular septal defect visualized. LVEF is 50%. Right Ventricle The right ventricle is normal size. The right ventricular systolic function is normal. Atria The left atrium size is normal. The right atrium size is normal. The interatrial septum is intact wit h no evidence for an atrial septal defect. Aortic Valve The aortic valve is normal in structure. Aortic valve is trileaflet. There is no aortic valvular sten osis. No aortic regurgitation is present. Mitral Valve The mitral valve is normal in structure. No evidence of mitral valve stenosis. Mild mitral regurgitat ion. Tricuspid Valve The tricuspid valve is normal in structure. There is no tricuspid valve stenosis. Trace tricuspid reg urgitation. Unable to assess PA pressure. Pulmonic Valve The pulmonary valve is normal in structure. There is no pulmonic valvular stenosis. Trace pulmonic re gurgitation. Great Vessels The aortic root is normal in size. The ascending aorta is mildly dilated. Aortic arch is not well vi sualized. IVC is normal in size and collapses >50% with inspiration. Pericardium There is no pericardial effusion. 2D Dimensions IVSD d PLAX 0.94 cm M: 0.6-1.2 Ao Root d 2.99 cm M: 3.1 - 3.7 LVPW d PLAX 0.93 cm M: 0.6 - 1.2 Ao Asc Diam d 3.50 cm M: 2.6 - 3.4 LVID d PLAX 4.64 cm M: 4.2 - 5.8 LVDs 3.62 cm M: 2.5 - 4.0 LV EF Teichholz 44.5 % FS 22.02 % LV EDV (Teich) 99.2 mL LV ESV (Teich) 55.0 mL M-Mode TAPSE 1.55 cm (M/F) >1.7 Auto EF LV EDV A4C 114.4 mL LV EDV A2C 101.9 mL LV EDV BP 108.5 mL LV ESV A4C 63.2 mL LV ESV A2C 55.3 mL LV ESV BP 60.0 mL LVEF(%) A4C 44.8 % LVEF(%) A2C 45.8 % LVEF(%) BP 44.7 % LV SV A4C 51.2 ml LV SV A2C 46.6 ml LV SV BP 48.5 ml LV CO A4C 4.4 L/min LV CO A2C 3.9 L/min LV CO BP 4.2 L/min HR A4C 86.34 BPM HR A2C 83.53 BPM LV EDV Index (BP) LA Volume LA Length A4C 4.4 cm LA Length A2C 4.2 cm LA Area A4C s 13.40 cm2 LA Area A2C s 13.48 cm2 LA Vol A4C A-L 34.25 mL LA Vol A2C A-L 36.83 mL LA Vol Biplane A-L 36.6 mL LA Vol/BSA A4C A-L LA Vol/BSA A2C A-L LA Vol/BSA BP A-L 18.6 mL/m2 LA Vol A4C MOD 29.0 mL LA Vol A2C MOD 33.7 mL LA Vol BP MOD 32.0 mL RA Volume RA Area A4C 10.0 cm2 RA ESV A4C (A-L) 19.8mL RA Vol/BSA A4C A-L RA Length A4C 4.3 cm RA ESV A4C (MOD) 19.7mL LV Diastology MV E' medial 0.052 (>0.07 m/s) MV E' lateral 0.053 (>0.1 m/s) Aortic Valve AoV Vmax 1.17 m/s LVOT Vmax 0.90 m/s AoV Peak Grad 5.5 mmHg LVOT Peak Grad 3.2 mmHg AoV Area (Vmax) 2.60 cm2 LVOT VTI 0.170 m AoV VTI 0.225 m LVOT Mean Grad 1.6 mmHg AoV Mean Govind. 0.83 m/s LVOT SV 57.63 mL AoV Mean Grad 3.2 mmHg LVOT Diam s 2.05 cm AoV Area (VTI) 2.56 cm2 AV Regurg Peak Gr. 5.49 mmHg Velocity Ratio 0.77 Mitral Valve MV Vmax TIPS 0.89 m/s MV Mean Grad 1.3 (<2mmHg) MV VTI 0.138 m Pulmonary Valve PV Vmax 1.12 (0.5-1.5 m/s) RVOT Vmax 0.61 m/s PV Peak Grad 5.0 mmHg RVOT Peak Gr. 1.5 mmHg PV Mean Govind 0.78 m/s RVOT VTI 0.129 m PV Mean Grad 2.7 mmHg RVOT Mean Gr. 0.9 mmHg Tricuspid Valve RA Pressure 3.00 mmHg TV S' 0.11 m/s
== END 2024-07-31 02:30 ==
LOC: DI 02:10
PROVIDERS: PCP Nurse Practitioner; Visit Provider Family Medicine
DX: I70.0 Atherosclerosis of aorta (principal)
CPT/HCPCS: 93306